=== PATIENT | male | born 1960 | race Hispanic/Latino ===

== ENCOUNTER 2017-10-18 06:45 | Day surgery (SDC) | payer MEDICAID ==
[2017-10-14 10:07] VITALS: BP 144/80
[2017-10-14 10:32] LABS: BASOPHILS % (AUTO) 1.2 % (0.0-5.0); EOSINOPHILS % (AUTO) 1.4 % (0.0-8.0); HEMATOCRIT 41.1 % (42-54); LYMPHOCYTES % (AUTO) 35.9 % (21.0-51.0); MEAN CORPUSCULAR HEMOGLOBIN 29.8 pg (27.0-33.0); MEAN CORPUSCULAR HGB CONC 34.5 g/dL (32.0-36.0); MEAN CORPUSCULAR VOLUME 86.3 fL (79-99); MONOCYTES % (AUTO) 7.1 % (3.0-13.0); NEUTROPHILS % (AUTO) 54.4 % (40.0-77.0); NUCLEATED RED BLOOD CELLS 0.1 % (0.0-0.19); PLATELET COUNT (AUTO) 239 K/uL (130-400); RED BLOOD CELL COUNT(AUTO) 4.77 MIL/uL (4.50-6.20); RED CELL DISTRIBUTION WIDTH 13.6 % (11.0-15.5); WHITE BLOOD COUNT (AUTO) 5.9 K/uL (4.8-10.8)
[2017-10-14 10:36] LABS: APPEARANCE,URINE Clear (CLEAR); BILIRUBIN,URINE Negative (NEGATIVE); COLOR,URINE Yellow (YELLOW); GLUCOSE, URINE (UA) >=1000 mg/dL (NEGATIVE); KETONES,URINE Trace mg/dL (NEGATIVE); LEUKOCYTE ESTERASE ,URINE Negative (NEGATIVE); NITRATE,URINE Negative (NEGATIVE); OCCULT BLOOD,URINE Negative (NEGATIVE); PH,URINE 6.5 (5.0-8.0); PROTEIN,URINE Negative (NEGATIVE)
[2017-10-14 10:47] LABS: CREATININE 0.9 mg/dL (0.5-1.5); POTASSIUM 4.3 mmol/L (3.5-5.1)
[2017-10-14 11:23] LABS: BACTERIA,URINE Rare /HPF (None Seen); RBC,URINE 0-1 /HPF (0-1); SQUAMOUS EPITHELIAL CELL,UR Rare /HPF (0-2); WBC,URINE 0-1 /HPF (0-1)
[~2017-10-18] VITALS: Ht 162.6 cm; Wt 87.3 kg
[2017-10-18] VITALS (14 sets, daily range): BP systolic 114–153; BP diastolic 62–84
[~2017-10-18 06:45] MED LIST: ATOR40TA71 PO; CARV3.12 PO; DIVA-78 PO; GLYB-226 PO; HYDR100C2 PO; INSU100I21 SQ; LINA5TAB PO; QUETIAPINE PO
[2017-10-18] MEDS ORDERED: SODIUM CHLORIDE 0.9% 1000ML 1,000 ML IV ONE (07:51)
[2017-10-18] MEDS ORDERED: INSULIN HUMULIN R 100 UNIT/ML 3ML ONE (08:39)
[2017-10-18] MEDS ORDERED: INSULIN HUMULIN R 100 UNIT/ML 3ML IV ONE (09:00)
[2017-10-18] MEDS ORDERED: FENTANYL CITRATE PF 50 MCG/1 ML 2ML VIAL ONE ×2 (09:13→09:23)
[2017-10-18] MEDS ORDERED: PROPOFOL 10 MG/ML 20ML VIAL IV ONE (09:13)
[2017-10-18] MEDS ORDERED: MIDAZOLAM HCL 1 MG/ML 2ML VIAL ONE (09:13)
[2017-10-18] MEDS ORDERED: BUPIVACAINE/PF 0.25% 30ML VIAL IJ ONE (09:16)
[2017-10-18] MEDS ORDERED: EPHEDRINE SULFATE 50 MG/ML AMPULE ONE (09:28)
[2017-10-18] MEDS ORDERED: NEOSTIGMINE 5MG/5ML SYR IV ONE (09:54)
== END 2017-10-18 12:10 | disposition home or self-care (01) ==
LOC: DAH 06:45
PROVIDERS: ATTEND Surgery
DX: K42.9 Umbilical hernia without obstruction or gangrene (principal); I10 Essential (primary) hypertension; E11.9 Type 2 diabetes mellitus without complications; Z88.8 Allergy status to other drugs, medicaments and biological substances; Z68.30 Body mass index [BMI] 30.0-30.9, adult
CPT/HCPCS: 36415; 49585; 80048; 81001; 82948 ×4; 85025; A4450; A4606; C1781; J1815; J2250; J2704; J2710; J3010 ×2; J3490 ×2; J7030

== ENCOUNTER 2022-02-07 22:00 | Inpatient (IN) | payer MEDICAID ==
[~2022-02-07] VITALS: Ht 157.5 cm; Wt 75.3 kg
[~2022-02-07 22:00] MED LIST changes: +EPINEPHRINE 1MG/10ML(1:10,000) 0.1 MG/ML SYG IVP ONE; +ETOMIDATE 20MG VIAL IVP ONE; +GLYB-171 PO; -GLYB-226 PO; +SUCCINYLCHOLINE CHLORIDE 20 MG/ML 10 ML VIAL IVP ONE
[2022-02-07 22:19] LABS: BASOPHILS % (AUTO) 0.2 % (0.0-5.0); HEMATOCRIT 36.6 % (42-54); LYMPHOCYTES % (AUTO) 11.8 % (21.0-51.0); MEAN CORPUSCULAR HEMOGLOBIN 29.5 pg (27.0-33.0); MEAN CORPUSCULAR HGB CONC 35.5 g/dL (32.0-36.0); MEAN CORPUSCULAR VOLUME 83.2 fL (79-99); MONOCYTES % (AUTO) 8.1 % (3.0-13.0); NEUTROPHILS % (AUTO) 78.2 % (40.0-77.0); PLATELET COUNT (AUTO) 263 K/uL (130-400); RED CELL DISTRIBUTION WIDTH 12.8 % (11.0-15.5); WHITE BLOOD COUNT (AUTO) 11.7 K/uL (4.8-10.8)
[2022-02-07 22:30] LABS: CARBON DIOXIDE 21 mmol/L (21-32); CHLORIDE 92 mmol/L (101-111); CREATININE 1.8 mg/dL (0.5-1.5); GLOMERULAR FILTR. RATE CALC 41 mL/min (>60); GLUCOSE,RANDOM 309 mg/dL (70-105); INR 0.93 (0.85-1.15); POTASSIUM 4.4 mmol/L (3.5-5.1); PROTHROMBIN TIME 10.2 SEC (9.6-11.6); SODIUM SERUM 123 mmol/L (136-145); UREA NITROGEN, BLOOD 21 mg/dL (7-18)
[2022-02-07] MEDS ORDERED: ASPIRIN 81MG CHEW TAB PO ONE ×2 (22:30)
[2022-02-07] MEDS ORDERED: CLOPIDOGREL 300MG TAB PO ONE ×2 (22:30)
[2022-02-07] MEDS ORDERED: PHARMACY COMMUNICATION MISC SCH ×2 (22:30)
[2022-02-07 22:31] LABS: PARTIAL THROMBOPLASTIN TIME 29.3 SEC (26.3-35.5)
[2022-02-07 22:35] LABS: ALANINE AMINOTRANSFERASE 51 U/L (12-78); ALBUMIN 3.8 g/dL (3.5-5.0); ALCOHOL, BLOOD < 3 mg/dL (0-10); AMMONIA 20 umol/L (11-32); ASPARTATE AMINOTRANSFERASE 55 U/L (10-37); TOTAL PROTEIN, SERUM 7.4 g/dL (6.0-8.3)
[2022-02-07] MEDS ORDERED: HEPARIN 25,000 UNITS/250ML D5W 250 ML IV STA (22:39)
[2022-02-07 22:45] LABS: B-TYPE NATRIURETIC PEPTIDE 290 pg/mL (0-100)
[2022-02-07] MEDS ORDERED: HEPARIN 5,000 UNIT VIAL ONE (22:46)
[2022-02-07] MEDS ORDERED: CLOPIDOGREL 75MG TAB PO ONE (23:00)
[2022-02-07] MEDS ORDERED: HEPARIN 5,000 UNIT VIAL IV ONE (23:00)
[2022-02-07] MEDS: HEPARIN 25,000 UNITS/250ML D5W 250 ML IV SCH (23:02)
[2022-02-08] VITALS (35 sets, daily range): BP systolic 81–195; BP diastolic 45–112
[2022-02-08] MEDS ORDERED: LACTULOSE 20 GM/30 ML UDCUP PO PRN
[2022-02-08] MEDS ORDERED: ONDANSETRON 4MG INJ IV PRN
[2022-02-08] MEDS ORDERED: AZITHROMYCIN 500MG+NS 250ML 250 ML IV SCH
[2022-02-08] MEDS ORDERED: 0.9%NACL 1000ML 1,000 ML IV SCH
[2022-02-08] MEDS ORDERED: CLOPIDOGREL 300MG TAB PO ONE (00:30)
[2022-02-08 00:32] LABS: CHOLESTEROL 157 mg/dL (<200); CREATINE KINASE, TOTAL 359 U/L (21-232); HDL CHOLESTEROL 37 mg/dL (29-71); LDL DIRECT 61 mg/dL (0-99); TRIGLYCERIDES 343 mg/dL (30-200)
[2022-02-08 00:33] LABS: HEMOGLOBIN A1C 8.8 % (4.0-6.0)
[2022-02-08] MEDS: CEFTRIAXONE 1G VIAL IV SCH ×2 (00:45→23:57)
[2022-02-08] MEDS: INSULIN HUMULIN R 100 UNIT/ML 3ML SQ SCH ×4 (00:46→18:00)
[2022-02-08] MEDS ORDERED: FUROSEMIDE 100MG VIAL IVP ONE (01:00)
[2022-02-08 01:15] LABS: ABG BASE EXCESS -7.9 mmol/L (-2.0-3.0); ABG HCO3 17.2 mmol/L (21.0-28.0); ABG OXYGEN SATURATION 94.1 % (95.0-99.0); ABG PCO2 34 mmHg (35-48)
[2022-02-08] MEDS ORDERED: FUROSEMIDE 40MG VIAL ONE ×2 (02:09→08:42)
[2022-02-08] MEDS ORDERED: OMEP40CA21 PO (02:22)
[2022-02-08] MEDS ORDERED: ATOR20TA65 PO (02:23)
[2022-02-08] MEDS ORDERED: QUET100T34 PO (02:24)
[2022-02-08] MEDS ORDERED: AMLO-257 PO (02:26)
[2022-02-08] MEDS ORDERED: LISI40TA9 PO (02:27)
[2022-02-08] MEDS ORDERED: GLYB-171 PO (02:28)
[2022-02-08] MEDS ORDERED: GABA-529 PO (02:29)
[2022-02-08] MEDS ORDERED: FAMO40TA7 PO (02:30)
[2022-02-08] MEDS ORDERED: LORAZEPAM 0.5 MG TABLET PO ONE (02:30)
[2022-02-08] MEDS ORDERED: INSU100V12 SQ (02:33)
[2022-02-08] MEDS ORDERED: DEXMEDETOMIDINE 400MCG/NS100ML IV ONE (05:22)
[2022-02-08 06:15] LABS: ABG BASE EXCESS -11.8 mmol/L (-2.0-3.0); ABG HCO3 18.3 mmol/L (21.0-28.0); ABG OXYGEN SATURATION 92.8 % (95.0-99.0); ABG PCO2 61 mmHg (35-48)
[2022-02-08 07:08] LABS: INR 0.95 (0.85-1.15); PROTHROMBIN TIME 10.4 SEC (9.6-11.6)
[2022-02-08 07:09] LABS: PARTIAL THROMBOPLASTIN TIME 33.1 SEC (26.3-35.5)
[2022-02-08] MEDS ORDERED: HEPARIN 5,000 UNIT VIAL IV SCH (08:00)
[2022-02-08] MEDS ORDERED: FUROSEMIDE 40MG VIAL IV SCH ×2 (08:30→08:43)
[2022-02-08] MEDS ORDERED: SODIUM BICARB 50MEQ 50ML VIAL 50 ML ONE ×2 (08:41→17:23)
[2022-02-08] MEDS ORDERED: NITROGLYCERIN 50MG/D5W 250ML 1 BOT ONE (08:42)
[2022-02-08] MEDS ORDERED: MORPHINE 2 MG SYG ONE (08:50)
[2022-02-08] MEDS ORDERED: MORPHINE 2 MG SYG IM SCH (08:54)
[2022-02-08] MEDS ORDERED: INSULIN HUMULIN R 100 UNIT/ML 3ML IV SCH (09:00)
[2022-02-08] MEDS ORDERED: METOPROLOL TARTRATE 25 MG TAB PO SCH (09:00)
[2022-02-08] MEDS ORDERED: NITROGLYCERIN 50MG/D5W 250ML 250 BOT IV SCH (09:00)
[2022-02-08] MEDS: CILOSTAZOL 100 MG TAB PO SCH ×2 (09:00→21:11)
[2022-02-08] MEDS ORDERED: FENTANYL 2500MCG+NS 250ML 250 ML IV ONE (09:23)
[2022-02-08] MEDS ORDERED: SODIUM BICARB 50MEQ 50ML VIAL 200 ML ONE (09:29)
[2022-02-08] MEDS ORDERED: INSULIN REGULAR, HUMAN 3ML 100 UNIT in 0.9%NACL 100ML 99 ML IV PRN ×2 (09:30)
[2022-02-08] MEDS ORDERED: MIDAZOLAM 100MG-0.9% NS 100ML 100ML BAG IV ONE (09:30)
[2022-02-08] MEDS ORDERED: NOREPINEPHRIN 4MG/NS 250ML 250 ML IV ONE (09:30)
[2022-02-08] MEDS ORDERED: FENTANYL 2500MCG+NS 250ML IV.SOLN IV SCH (09:30)
[2022-02-08] MEDS ORDERED: EPINEPHRINE PF 1MG (1:1,000) 1 MG/ML AMP ONE (09:40)
[2022-02-08] MEDS ORDERED: MIDAZOLAM 100MG-0.9% NS 100ML 100 ML IV SCH (10:00)
[2022-02-08 10:02] LABS: ABG BASE EXCESS -8.3 mmol/L (-2.0-3.0); ABG HCO3 17.5 mmol/L (21.0-28.0); ABG OXYGEN SATURATION 99.3 % (95.0-99.0); ABG PCO2 37 mmHg (35-48)
[2022-02-08] MEDS: HEPARIN 25,000 UNITS/250ML D5W 250 ML IV SCH (10:10)
[2022-02-08] MEDS ORDERED: NOREPINEPHRINE BITARTRATE 32 MG in 0.9% NACL 250ML 250 ML IV PRN (10:30)
[2022-02-08] MEDS ORDERED: ASPIRIN 300 MG SUPPOSITORY PR SCH (10:30)
[2022-02-08] MEDS ORDERED: PHARMACY COMMUNICATION MISC SCH ×2 (11:00→18:00)
[2022-02-08] MEDS: ATORVASTATIN 40 MG TABLET PO SCH ×2 (11:00→21:11)
[2022-02-08 11:12] LABS: HEMATOCRIT 33.4 % (42-54); MEAN CORPUSCULAR HEMOGLOBIN 29.2 pg (27.0-33.0); MEAN CORPUSCULAR HGB CONC 33.5 g/dL (32.0-36.0); MEAN CORPUSCULAR VOLUME 87.2 fL (79-99); PLATELET COUNT (AUTO) 284 K/uL (130-400); RED BLOOD CELL COUNT(AUTO) 3.83 MIL/uL (4.50-6.20); RED CELL DISTRIBUTION WIDTH 12.9 % (11.0-15.5)
[2022-02-08] MEDS: CHLORHEXIDINE GLUCONATE 473 ML MOUTHWASH MM SCH ×2 (11:15→21:00)
[2022-02-08 11:23] LABS: APPEARANCE,URINE CLEAR (CLEAR); BILIRUBIN,URINE NEGATIVE (NEGATIVE); COLOR,URINE LIGHT-YELLOW (YELLOW); GLUCOSE, URINE (UA) >=1000 mg/dL (NEGATIVE); KETONES,URINE 5 mg/dL (NEGATIVE); LEUKOCYTE ESTERASE ,URINE NEGATIVE Leu/uL (NEGATIVE); NITRATE,URINE NEGATIVE (NEGATIVE); OCCULT BLOOD,URINE NEGATIVE (NEGATIVE); PROTEIN,URINE NEGATIVE (NEGATIVE); UROBILINOGEN,URINE 0.2 mg/dL (0.2-1.0)
[2022-02-08 11:29] LABS: MUCUS,URINE RARE LPF (None Seen); OTHER CASTS, URINE 1 /LPF (None Seen); SQUAMOUS EPITHELIAL CELL,UR RARE /HPF (0-2); WBC,URINE 0-1 /HPF (0-1)
[2022-02-08 11:31] LABS: AMPHET/METH SCREEN,URINE NEGATIVE (NEGATIVE); BARBITURATE SCREEN, URINE NEGATIVE (NEGATIVE); BENZODIAZEPINES SCREEN,URINE NEGATIVE (NEGATIVE); CANNABINOID SCREEN,URINE NEGATIVE (NEGATIVE); COCAINE SCREEN,URINE NEGATIVE (NEGATIVE); PHENCYCLIDINE SCREEN,URINE NEGATIVE (NEGATIVE)
[2022-02-08 11:54] LABS: ALBUMIN 3.1 g/dL (3.5-5.0); CREATININE 2.6 mg/dL (0.5-1.5); MAGNESIUM 1.7 mg/dL (1.80-2.40); PHOSPHORUS 5.7 mg/dL (2.5-4.9); POTASSIUM 4.2 mmol/L (3.5-5.1); TOTAL PROTEIN, SERUM 6.7 g/dL (6.0-8.3)
[2022-02-08] MEDS: FUROSEMIDE 100MG VIAL 100 MG in 0.9%NACL 100ML 100 ML IV SCH (12:09)
[2022-02-08 12:18] LABS: BAND NEUTROPHILS % (MANUAL) 4 % (0-2); LYMPHOCYTES % (MANUAL) 11 % (22-44); SEGMENTED NEUTROPHILS % 85 % (40-70)
[2022-02-08 12:19] LABS: MAN.DIFF COMMENT-IMPRESSION MANUAL DIFFERENTIAL; PLATELET MORPHOLOGY COMMENT ADEQUATE
[2022-02-08] MEDS ORDERED: DEXTROSE 50%-WATER 50 ML DISP.SYRIN IV PRN ×2 (12:30→17:30)
[2022-02-08] MEDS ORDERED: INSULIN IV SS1 IV PRN ×2 (12:30)
[2022-02-08 12:32] LABS: INR 0.97 (0.85-1.15); PROTHROMBIN TIME 10.6 SEC (9.6-11.6)
[2022-02-08 12:33] LABS: PARTIAL THROMBOPLASTIN TIME 36.7 SEC (26.3-35.5)
[2022-02-08] MEDS: PANTOPRAZOLE 40 MG/VIAL IVP SCH ×2 (13:34→21:11)
[2022-02-08] MEDS: ARTIFICAL TEARS SOL 15 ML OU SCH ×3 (13:35→23:58)
[2022-02-08] MEDS: DOXYCYCLINE 100MG+NS 250ML IV SCH ×2 (13:35→23:57)
[2022-02-08] MEDS ORDERED: IOHEXOL 350 MG/ML 100ML INFUS..BTL IV ONE (16:00)
[2022-02-08] MEDS ORDERED: LIDOCAINE HCL-MPF 2% 10ML AMP IJ ONE (16:00)
[2022-02-08] MEDS ORDERED: VERAPAMIL HCL 2.5 MG/ML VIAL ONE (16:01)
[2022-02-08] MEDS ORDERED: HEPARIN 10,000 UNIT/10ML (1,000 UNIT/ML) VIAL ONE (16:01)
[2022-02-08] MEDS ORDERED: GLUCAGON 1MG KIT 1 MG ML IM PRN (17:30)
[2022-02-08] MEDS ORDERED: IOHEXOL-350 50ML VIAL IV ONE (17:31)
[2022-02-08] MEDS: EPINEPHRINE PF 1MG (1:1,000) 10 MG in 0.9% NACL 250ML 240 ML IV PRN (18:31)
[2022-02-08 18:48] LABS: HEMATOCRIT 33.4 % (42-54); MEAN CORPUSCULAR HEMOGLOBIN 29.2 pg (27.0-33.0); MEAN CORPUSCULAR HGB CONC 35.9 g/dL (32.0-36.0); MEAN CORPUSCULAR VOLUME 81.3 fL (79-99); PLATELET COUNT (AUTO) 338 K/uL (130-400); RED BLOOD CELL COUNT(AUTO) 4.11 MIL/uL (4.50-6.20); RED CELL DISTRIBUTION WIDTH 12.6 % (11.0-15.5); WHITE BLOOD COUNT (AUTO) 17.7 K/uL (4.8-10.8)
[2022-02-08 18:56] LABS: CREATININE 1.6 mg/dL (0.5-1.5); POTASSIUM 3.3 mmol/L (3.5-5.1)
[2022-02-08 18:58] LABS: INR 1.03 (0.85-1.15); PROTHROMBIN TIME 11.2 SEC (9.6-11.6)
[2022-02-08 19:01] LABS: ALBUMIN 3.3 g/dL (3.5-5.0); MAGNESIUM 1.7 mg/dL (1.80-2.40); TOTAL PROTEIN, SERUM 7.2 g/dL (6.0-8.3)
[2022-02-08] MEDS ORDERED: LIDOCAINE HCL-MPF 1% 2ML VIAL IV PRN ×2 (19:30)
[2022-02-08] MEDS ORDERED: POTASSIUM CHLORIDE 20MEQ/100ML 100 ML IV PRN (19:30)
[2022-02-08 19:37] LABS: PARTIAL THROMBOPLASTIN TIME > 139.0 SEC (26.3-35.5)
[2022-02-08 20:07] LABS: BAND NEUTROPHILS % (MANUAL) 6 % (0-2); LYMPHOCYTES % (MANUAL) 14 % (22-44); MAN.DIFF COMMENT-IMPRESSION MANUAL DIFFERENTIAL; MONOCYTES % (MANUAL) 12 % (2-9); REACTIVE LYMPHOCYTES 5 % (0-0); SEGMENTED NEUTROPHILS % 63 % (40-70)
[2022-02-08] MEDS ORDERED: 0.9%NACL 50ML IV SCH (20:30)
[2022-02-08] MEDS: INSULIN GLARGINE 100 UNITS/ML 10 ML VIAL SQ SCH (21:00)
[2022-02-08] MEDS: POTASSIUM CHLORIDE 20MEQ/100ML 100 ML IV PRN (22:30)
[2022-02-08] MEDS: INSULIN IV SS2 IV PRN ×2 (23:55)
[2022-02-09] VITALS (23 sets, daily range): BP systolic 92–163; BP diastolic 67–103
[2022-02-09 00:40] LABS: BASOPHILS % (AUTO) 0.2 % (0.0-5.0); EOSINOPHILS % (AUTO) 0.3 % (0.0-8.0); HEMATOCRIT 33.8 % (42-54); LYMPHOCYTES % (AUTO) 21.1 % (21.0-51.0); MEAN CORPUSCULAR HEMOGLOBIN 29.2 pg (27.0-33.0); MEAN CORPUSCULAR HGB CONC 35.8 g/dL (32.0-36.0); MEAN CORPUSCULAR VOLUME 81.6 fL (79-99); MONOCYTES % (AUTO) 12.7 % (3.0-13.0); PLATELET COUNT (AUTO) 357 K/uL (130-400); RED BLOOD CELL COUNT(AUTO) 4.14 MIL/uL (4.50-6.20); RED CELL DISTRIBUTION WIDTH 12.7 % (11.0-15.5); WHITE BLOOD COUNT (AUTO) 19.5 K/uL (4.8-10.8)
[2022-02-09 00:46] LABS: PROTHROMBIN TIME 10.9 SEC (9.6-11.6)
[2022-02-09 00:48] LABS: PARTIAL THROMBOPLASTIN TIME 54.1 SEC (26.3-35.5)
[2022-02-09 00:49] LABS: ALBUMIN 3.3 g/dL (3.5-5.0); CREATININE 1.3 mg/dL (0.5-1.5); MAGNESIUM 1.5 mg/dL (1.80-2.40); PHOSPHORUS 2.4 mg/dL (2.5-4.9); TOTAL PROTEIN, SERUM 7.3 g/dL (6.0-8.3)
[2022-02-09] MEDS: POTASSIUM CHLORIDE 20MEQ/100ML 100 ML IV PRN ×6 (00:59→18:25)
[2022-02-09] MEDS: FENTANYL 2500MCG+NS 250ML 250 ML IV SCH ×3 (01:40→23:37)
[2022-02-09] MEDS: MAGNESIUM 2GM PREMIX 50ML 50 ML IV PRN ×2 (03:02→18:20)
[2022-02-09 03:41] LABS: ABG BASE EXCESS 3.6 mmol/L (-2.0-3.0); ABG HCO3 26.1 mmol/L (21.0-28.0); ABG OXYGEN SATURATION 99.2 % (95.0-99.0); ABG PCO2 33 mmHg (35-48)
[2022-02-09] MEDS: ARTIFICAL TEARS SOL 15 ML OU SCH ×4 (05:23→23:03)
[2022-02-09] MEDS: INSULIN HUMULIN R 100 UNIT/ML 3ML SQ SCH ×5 (06:00→23:03)
[2022-02-09 06:03] LABS: BASOPHILS % (AUTO) 0.3 % (0.0-5.0); EOSINOPHILS % (AUTO) 0.1 % (0.0-8.0); HEMATOCRIT 33.8 % (42-54); LYMPHOCYTES % (AUTO) 20.7 % (21.0-51.0); MEAN CORPUSCULAR HEMOGLOBIN 29.3 pg (27.0-33.0); MEAN CORPUSCULAR HGB CONC 35.8 g/dL (32.0-36.0); MEAN CORPUSCULAR VOLUME 81.8 fL (79-99); MONOCYTES % (AUTO) 12.2 % (3.0-13.0); NEUTROPHILS % (AUTO) 66.1 % (40.0-77.0); NUCLEATED RED BLOOD CELLS 0.1 % (0.0-0.19); PLATELET COUNT (AUTO) 349 K/uL (130-400); RED BLOOD CELL COUNT(AUTO) 4.13 MIL/uL (4.50-6.20); RED CELL DISTRIBUTION WIDTH 12.7 % (11.0-15.5); WHITE BLOOD COUNT (AUTO) 18.6 K/uL (4.8-10.8)
[2022-02-09 06:19] LABS: POTASSIUM 3.1 mmol/L (3.5-5.1)
[2022-02-09 06:20] LABS: PROTHROMBIN TIME 10.9 SEC (9.6-11.6)
[2022-02-09 06:21] LABS: PARTIAL THROMBOPLASTIN TIME 53.5 SEC (26.3-35.5)
[2022-02-09] MEDS: FUROSEMIDE 100MG VIAL 100 MG in 0.9%NACL 100ML 100 ML IV SCH (06:30)
[2022-02-09 06:40] LABS: ALBUMIN 3.3 g/dL (3.5-5.0); MAGNESIUM 1.9 mg/dL (1.80-2.40); PHOSPHORUS 2.7 mg/dL (2.5-4.9); THYROID STIMULATING HORMONE 1.6 uIU/mL (0.36-3.74); TOTAL PROTEIN, SERUM 7.2 g/dL (6.0-8.3)
[2022-02-09] MEDS: MIDAZOLAM 100MG-0.9% NS 100ML 100ML BAG IV PRN ×2 (08:38→18:19)
[2022-02-09 09:48] LABS: BASOPHILS % (AUTO) 0.2 % (0.0-5.0); EOSINOPHILS % (AUTO) 0.1 % (0.0-8.0); HEMATOCRIT 34.3 % (42-54); MEAN CORPUSCULAR HEMOGLOBIN 29.4 pg (27.0-33.0); MEAN CORPUSCULAR HGB CONC 35.3 g/dL (32.0-36.0); MEAN CORPUSCULAR VOLUME 83.3 fL (79-99); NEUTROPHILS % (AUTO) 66.2 % (40.0-77.0); PLATELET COUNT (AUTO) 336 K/uL (130-400); RED BLOOD CELL COUNT(AUTO) 4.12 MIL/uL (4.50-6.20); WHITE BLOOD COUNT (AUTO) 18.5 K/uL (4.8-10.8)
[2022-02-09 09:58] LABS: INR 1.01 (0.85-1.15)
[2022-02-09 09:59] LABS: PARTIAL THROMBOPLASTIN TIME 54.6 SEC (26.3-35.5)
[2022-02-09 10:05] LABS: POTASSIUM 3.7 mmol/L (3.5-5.1)
[2022-02-09 10:10] LABS: ALBUMIN 3.3 g/dL (3.5-5.0); TOTAL PROTEIN, SERUM 7.4 g/dL (6.0-8.3)
[2022-02-09] MEDS: CHLORHEXIDINE GLUCONATE 473 ML MOUTHWASH MM SCH ×2 (10:29→20:59)
[2022-02-09] MEDS: PANTOPRAZOLE 40 MG/VIAL IVP SCH ×2 (10:29→20:58)
[2022-02-09] MEDS: DOXYCYCLINE 100MG+NS 250ML IV SCH ×2 (10:29→23:03)
[2022-02-09] MEDS: INSULIN GLARGINE 100 UNITS/ML 10 ML VIAL SQ SCH ×2 (10:30→21:12)
[2022-02-09] MEDS: CILOSTAZOL 100 MG TAB PO SCH ×2 (10:35→20:58)
[2022-02-09] MEDS: HEPARIN 25,000 UNITS/250ML D5W 250 ML IV SCH (11:26)
[2022-02-09] MEDS: DEXMEDETOMIDINE 400MCG/NS100ML IV SCH (11:50)
[2022-02-09 13:18] LABS: ABG BASE EXCESS 3.9 mmol/L (-2.0-3.0); ABG HCO3 27.4 mmol/L (21.0-28.0); ABG OXYGEN SATURATION 95.8 % (95.0-99.0); ABG PCO2 38 mmHg (35-48)
[2022-02-09] MEDS: CALCIUM GLUC 1GM/10ML VIAL IVPB SCH (13:44)
[2022-02-09] MEDS: EPINEPHRINE PF 1MG (1:1,000) 10 MG in 0.9% NACL 250ML 240 ML IV PRN (14:46)
[2022-02-09 17:01] LABS: CREATININE 0.9 mg/dL (0.5-1.5); POTASSIUM 3.3 mmol/L (3.5-5.1)
[2022-02-09 17:05] LABS: ALBUMIN 3.1 g/dL (3.5-5.0); BASOPHILS % (AUTO) 0.3 % (0.0-5.0); EOSINOPHILS % (AUTO) 0.2 % (0.0-8.0); HEMATOCRIT 33.4 % (42-54); LYMPHOCYTES % (AUTO) 27.4 % (21.0-51.0); MAGNESIUM 1.5 mg/dL (1.80-2.40); MEAN CORPUSCULAR HEMOGLOBIN 28.9 pg (27.0-33.0); MEAN CORPUSCULAR HGB CONC 34.1 g/dL (32.0-36.0); MEAN CORPUSCULAR VOLUME 84.6 fL (79-99); NEUTROPHILS % (AUTO) 59.6 % (40.0-77.0); PLATELET COUNT (AUTO) 295 K/uL (130-400); RED BLOOD CELL COUNT(AUTO) 3.95 MIL/uL (4.50-6.20); RED CELL DISTRIBUTION WIDTH 13.2 % (11.0-15.5); TOTAL PROTEIN, SERUM 7.1 g/dL (6.0-8.3); WHITE BLOOD COUNT (AUTO) 16.4 K/uL (4.8-10.8)
[2022-02-09 17:17] LABS: INR 1.05 (0.85-1.15); PROTHROMBIN TIME 11.4 SEC (9.6-11.6)
[2022-02-09 17:18] LABS: PARTIAL THROMBOPLASTIN TIME 58.5 SEC (26.3-35.5)
[2022-02-09] MEDS ORDERED: NACL IV ONE (17:30)
[2022-02-09 22:53] LABS: BASOPHILS % (AUTO) 0.2 % (0.0-5.0); EOSINOPHILS % (AUTO) 0.4 % (0.0-8.0); HEMATOCRIT 32.9 % (42-54); LYMPHOCYTES % (AUTO) 28.7 % (21.0-51.0); MEAN CORPUSCULAR HEMOGLOBIN 28.8 pg (27.0-33.0); MEAN CORPUSCULAR HGB CONC 33.7 g/dL (32.0-36.0); MEAN CORPUSCULAR VOLUME 85.2 fL (79-99); MONOCYTES % (AUTO) 11.6 % (3.0-13.0); NEUTROPHILS % (AUTO) 58.7 % (40.0-77.0); PLATELET COUNT (AUTO) 255 K/uL (130-400); RED BLOOD CELL COUNT(AUTO) 3.86 MIL/uL (4.50-6.20); RED CELL DISTRIBUTION WIDTH 13.2 % (11.0-15.5); WHITE BLOOD COUNT (AUTO) 16.8 K/uL (4.8-10.8)
[2022-02-09] MEDS: CEFTRIAXONE 1G VIAL IV SCH (23:03)
[2022-02-09 23:07] LABS: INR 1.05 (0.85-1.15); PROTHROMBIN TIME 11.4 SEC (9.6-11.6)
[2022-02-09 23:08] LABS: PARTIAL THROMBOPLASTIN TIME 63.2 SEC (26.3-35.5)
[2022-02-09 23:11] LABS: POTASSIUM 3.3 mmol/L (3.5-5.1)
[2022-02-09 23:15] LABS: MAGNESIUM 1.6 mg/dL (1.80-2.40); PHOSPHORUS 3.4 mg/dL (2.5-4.9); TOTAL PROTEIN, SERUM 6.9 g/dL (6.0-8.3)
[2022-02-10] VITALS (38 sets, daily range): BP systolic 81–175; BP diastolic 52–84
[2022-02-10] MEDS: MAGNESIUM 2GM PREMIX 50ML 50 ML IV PRN ×2 (00:31→04:55)
[2022-02-10] MEDS: HEPARIN 25,000 UNITS/250ML D5W 250 ML IV SCH ×2 (00:57→16:09)
[2022-02-10] MEDS: INSULIN IV SS2 IV PRN ×2 (00:59)
[2022-02-10] MEDS: POTASSIUM CHLORIDE 20MEQ/100ML 100 ML IV PRN ×2 (01:53→04:28)
[2022-02-10] MEDS ORDERED: 0.9% NACL 500ML IV.SOLN 500 ML IV ONE (02:50)
[2022-02-10 04:12] LABS: BASOPHILS % (AUTO) 0.4 % (0.0-5.0); EOSINOPHILS % (AUTO) 0.5 % (0.0-8.0); HEMATOCRIT 31.6 % (42-54); LYMPHOCYTES % (AUTO) 26.9 % (21.0-51.0); MEAN CORPUSCULAR HEMOGLOBIN 29.4 pg (27.0-33.0); MEAN CORPUSCULAR HGB CONC 34.5 g/dL (32.0-36.0); MEAN CORPUSCULAR VOLUME 85.2 fL (79-99); MONOCYTES % (AUTO) 11.6 % (3.0-13.0); NEUTROPHILS % (AUTO) 60.2 % (40.0-77.0); PLATELET COUNT (AUTO) 273 K/uL (130-400); RED BLOOD CELL COUNT(AUTO) 3.71 MIL/uL (4.50-6.20); WHITE BLOOD COUNT (AUTO) 16.8 K/uL (4.8-10.8)
[2022-02-10 04:22] LABS: CREATININE 0.9 mg/dL (0.5-1.5); POTASSIUM 3.8 mmol/L (3.5-5.1)
[2022-02-10 04:36] LABS: ALBUMIN 2.9 g/dL (3.5-5.0); INR 1.02 (0.85-1.15); MAGNESIUM 1.9 mg/dL (1.80-2.40); PHOSPHORUS 3.1 mg/dL (2.5-4.9); PROTHROMBIN TIME 11.1 SEC (9.6-11.6); TOTAL PROTEIN, SERUM 6.8 g/dL (6.0-8.3)
[2022-02-10 04:38] LABS: PARTIAL THROMBOPLASTIN TIME 62.5 SEC (26.3-35.5)
[2022-02-10] MEDS: INSULIN HUMULIN R 100 UNIT/ML 3ML SQ SCH ×4 (04:40→23:54)
[2022-02-10] MEDS: ARTIFICAL TEARS SOL 15 ML OU SCH ×4 (04:55→23:53)
[2022-02-10] MEDS: MIDAZOLAM 100MG-0.9% NS 100ML 100ML BAG IV PRN (05:56)
[2022-02-10] MEDS: INSULIN GLARGINE 100 UNITS/ML 10 ML VIAL SQ SCH ×2 (05:57→21:43)
[2022-02-10] MEDS: CHLORHEXIDINE GLUCONATE 473 ML MOUTHWASH MM SCH ×2 (09:00→21:41)
[2022-02-10] MEDS: CILOSTAZOL 100 MG TAB PO SCH ×2 (09:52→21:41)
[2022-02-10] MEDS: PANTOPRAZOLE 40 MG/VIAL IVP SCH ×2 (09:52→21:41)
[2022-02-10 10:14] LABS: ABG BASE EXCESS 3.4 mmol/L (-2.0-3.0); ABG HCO3 26.9 mmol/L (21.0-28.0); ABG OXYGEN SATURATION 95.7 % (95.0-99.0); ABG PCO2 37 mmHg (35-48)
[2022-02-10 10:53] LABS: HEMATOCRIT 30.6 % (42-54); MEAN CORPUSCULAR HEMOGLOBIN 28.9 pg (27.0-33.0); MEAN CORPUSCULAR HGB CONC 33.7 g/dL (32.0-36.0); PLATELET COUNT (AUTO) 190 K/uL (130-400); RED BLOOD CELL COUNT(AUTO) 3.56 MIL/uL (4.50-6.20); RED CELL DISTRIBUTION WIDTH 13.1 % (11.0-15.5); WHITE BLOOD COUNT (AUTO) 10.4 K/uL (4.8-10.8)
[2022-02-10] MEDS: DOXYCYCLINE 100MG+NS 250ML IV SCH ×2 (11:00→23:53)
[2022-02-10 11:03] LABS: INR 1.01 (0.85-1.15)
[2022-02-10 11:04] LABS: CREATININE 0.9 mg/dL (0.5-1.5); PARTIAL THROMBOPLASTIN TIME 62.6 SEC (26.3-35.5); POTASSIUM 4.3 mmol/L (3.5-5.1)
[2022-02-10 11:08] LABS: ALBUMIN 2.8 g/dL (3.5-5.0); MAGNESIUM 2.5 mg/dL (1.80-2.40); PHOSPHORUS 4.2 mg/dL (2.5-4.9); TOTAL PROTEIN, SERUM 6.8 g/dL (6.0-8.3)
[2022-02-10 12:10] LABS: BAND NEUTROPHILS % (MANUAL) 1 % (0-2); EOSINOPHILS % (MANUAL) 2 % (1-6); LYMPHOCYTES % (MANUAL) 20 % (22-44); MAN.DIFF COMMENT-IMPRESSION MANUAL DIFFERENTIAL; MONOCYTES % (MANUAL) 4 % (2-9); PLATELET MORPHOLOGY COMMENT ADEQUATE; SEGMENTED NEUTROPHILS % 73 % (40-70)
[2022-02-10] MEDS: FENTANYL 2500MCG+NS 250ML 250 ML IV SCH (13:42)
[2022-02-10] MEDS: DEXMEDETOMIDINE 400MCG/NS100ML IV SCH (13:51)
[2022-02-10] MEDS: FUROSEMIDE 100MG VIAL 100 MG in 0.9%NACL 100ML 100 ML IV SCH (14:24)
[2022-02-10] MEDS ORDERED: ASPIRIN 81 MG EC TAB PO ONE (14:30)
[2022-02-10] MEDS: PROPOFOL 1000 MG/100 ML IV PRN (15:13)
[2022-02-10 16:56] LABS: HEMATOCRIT 28.7 % (42-54); MEAN CORPUSCULAR HEMOGLOBIN 29.3 pg (27.0-33.0); MEAN CORPUSCULAR HGB CONC 33.8 g/dL (32.0-36.0); MEAN CORPUSCULAR VOLUME 86.7 fL (79-99); PLATELET COUNT (AUTO) 186 K/uL (130-400); RED BLOOD CELL COUNT(AUTO) 3.31 MIL/uL (4.50-6.20); WHITE BLOOD COUNT (AUTO) 9.3 K/uL (4.8-10.8)
[2022-02-10 16:59] LABS: BASOPHILS % (AUTO) 0.2 % (0.0-5.0); EOSINOPHILS % (AUTO) 0.9 % (0.0-8.0); LYMPHOCYTES % (AUTO) 15.7 % (21.0-51.0); MONOCYTES % (AUTO) 8.5 % (3.0-13.0); NEUTROPHILS % (AUTO) 74.2 % (40.0-77.0)
[2022-02-10 17:04] LABS: CREATININE 0.9 mg/dL (0.5-1.5); POTASSIUM 4.5 mmol/L (3.5-5.1)
[2022-02-10 17:06] LABS: PROTHROMBIN TIME 10.9 SEC (9.6-11.6)
[2022-02-10 17:07] LABS: PARTIAL THROMBOPLASTIN TIME 59.2 SEC (26.3-35.5)
[2022-02-10 17:09] LABS: ALBUMIN 2.6 g/dL (3.5-5.0); MAGNESIUM 2.1 mg/dL (1.80-2.40); PHOSPHORUS 4.1 mg/dL (2.5-4.9); TOTAL PROTEIN, SERUM 6.5 g/dL (6.0-8.3)
[2022-02-10] MEDS: CALCIUM GLUC 1GM/10ML VIAL IVPB SCH ×3 (17:39→21:34)
[2022-02-10] MEDS ORDERED: DOBUTAMINE 250MG/D5 250ML 250 ML IV ONE (20:50)
[2022-02-10] MEDS ORDERED: DOBUTAMINE 250MG/D5 250ML 250 ML IV SCH (21:00)
[2022-02-10 21:09] LABS: ABG BASE EXCESS -1.3 mmol/L (-2.0-3.0); ABG HCO3 21.5 mmol/L (21.0-28.0); ABG OXYGEN SATURATION 96.5 % (95.0-99.0); ABG PCO2 29 mmHg (35-48)
[2022-02-10 21:10] LABS: MEAN CORPUSCULAR HEMOGLOBIN 29.6 pg (27.0-33.0); MEAN CORPUSCULAR HGB CONC 34.4 g/dL (32.0-36.0); PLATELET COUNT (AUTO) 168 K/uL (130-400); RED BLOOD CELL COUNT(AUTO) 3.14 MIL/uL (4.50-6.20); RED CELL DISTRIBUTION WIDTH 13.1 % (11.0-15.5); WHITE BLOOD COUNT (AUTO) 8.7 K/uL (4.8-10.8)
[2022-02-10 21:17] LABS: BASOPHILS % (AUTO) 0.1 % (0.0-5.0); EOSINOPHILS % (AUTO) 0.5 % (0.0-8.0); LYMPHOCYTES % (AUTO) 17.1 % (21.0-51.0); MONOCYTES % (AUTO) 6.7 % (3.0-13.0); NEUTROPHILS % (AUTO) 75.2 % (40.0-77.0)
[2022-02-10 21:19] LABS: CREATININE 0.9 mg/dL (0.5-1.5); POTASSIUM 4.2 mmol/L (3.5-5.1)
[2022-02-10 21:20] LABS: PROTHROMBIN TIME 10.9 SEC (9.6-11.6)
[2022-02-10 21:22] LABS: PARTIAL THROMBOPLASTIN TIME 60.9 SEC (26.3-35.5)
[2022-02-10 21:23] LABS: ALBUMIN 2.5 g/dL (3.5-5.0); PHOSPHORUS 4.5 mg/dL (2.5-4.9); TOTAL PROTEIN, SERUM 6.3 g/dL (6.0-8.3)
[2022-02-10] MEDS ORDERED: 0.9% NACL 250ML 250 ML ONE (21:40)
[2022-02-10] MEDS: CEFTRIAXONE 1G VIAL IV SCH (23:54)
[2022-02-11] VITALS (48 sets, daily range): BP systolic 65–169; BP diastolic 45–108
[2022-02-11] MEDS: DEXMEDETOMIDINE 400MCG/NS100ML IV SCH ×2 (00:47→09:03)
[2022-02-11] MEDS ORDERED: DEXTROSE 5%-WATER 1,000 ML IV ONE (01:09)
[2022-02-11] MEDS ORDERED: SODIUM BICARB 50MEQ 50ML VIAL 50 ML ONE (01:25)
[2022-02-11 03:32] LABS: ABG BASE EXCESS 0.3 mmol/L (-2.0-3.0); ABG HCO3 23.1 mmol/L (21.0-28.0); ABG OXYGEN SATURATION 97.6 % (95.0-99.0); ABG PCO2 32 mmHg (35-48)
[2022-02-11 03:58] LABS: BASOPHILS % (AUTO) 0.2 % (0.0-5.0); EOSINOPHILS % (AUTO) 1.6 % (0.0-8.0); HEMATOCRIT 29.5 % (42-54); LYMPHOCYTES % (AUTO) 25.8 % (21.0-51.0); MEAN CORPUSCULAR HEMOGLOBIN 29.4 pg (27.0-33.0); MEAN CORPUSCULAR HGB CONC 34.2 g/dL (32.0-36.0); MONOCYTES % (AUTO) 8.2 % (3.0-13.0); NEUTROPHILS % (AUTO) 63.8 % (40.0-77.0); PLATELET COUNT (AUTO) 169 K/uL (130-400); RED BLOOD CELL COUNT(AUTO) 3.43 MIL/uL (4.50-6.20); RED CELL DISTRIBUTION WIDTH 12.7 % (11.0-15.5); WHITE BLOOD COUNT (AUTO) 8.6 K/uL (4.8-10.8)
[2022-02-11 04:07] LABS: INR 1.01 (0.85-1.15)
[2022-02-11 04:09] LABS: PARTIAL THROMBOPLASTIN TIME 64.6 SEC (26.3-35.5)
[2022-02-11 04:26] LABS: B-TYPE NATRIURETIC PEPTIDE 453 pg/mL (0-100)
[2022-02-11 04:30] LABS: HEMOGLOBIN A1C 9.9 % (4.0-6.0)
[2022-02-11] MEDS: PROPOFOL 1000 MG/100 ML IV PRN ×4 (04:32→17:53)
[2022-02-11 04:45] LABS: CREATININE 0.8 mg/dL (0.5-1.5); POTASSIUM 3.4 mmol/L (3.5-5.1)
[2022-02-11] MEDS: POTASSIUM CHLORIDE 20MEQ/100ML 100 ML IV PRN ×2 (04:53→07:05)
[2022-02-11 05:08] LABS: ALBUMIN 2.5 g/dL (3.5-5.0); TOTAL PROTEIN, SERUM 6.3 g/dL (6.0-8.3)
[2022-02-11] MEDS: INSULIN HUMULIN R 100 UNIT/ML 3ML SQ SCH (05:12)
[2022-02-11] MEDS: ARTIFICAL TEARS SOL 15 ML OU SCH ×4 (05:12→23:00)
[2022-02-11] MEDS: HEPARIN 25,000 UNITS/250ML D5W 250 ML IV SCH (07:03)
[2022-02-11] MEDS: MAGNESIUM 2GM PREMIX 50ML 50 ML IV PRN (07:04)
[2022-02-11] MEDS: INSULIN GLARGINE 100 UNITS/ML 10 ML VIAL SQ SCH (07:30)
[2022-02-11] MEDS ORDERED: EPINEPHRINE PF 1MG (1:1,000) 10 MG in 0.9% NACL 250ML 240 ML IV PRN ×2 (08:00→21:00)
[2022-02-11] MEDS ORDERED: AMINOCAPROIC ACID 5,000MG VIAL 15,000 MG in 0.9% NACL 500ML IV.SOLN 420 ML IV PRN (08:00)
[2022-02-11] MEDS ORDERED: NOREPINEPHRINE BITARTRATE 8 MG in DEXTROSE 5%-WATER 250 ML IV PRN (08:00)
[2022-02-11] MEDS: INSULIN IV SS2 IV PRN ×2 (08:59)
[2022-02-11] MEDS: ASPIRIN 81 MG EC TAB PO SCH (09:00)
[2022-02-11] MEDS: PANTOPRAZOLE 40 MG/VIAL IVP SCH ×2 (09:00→21:00)
[2022-02-11] MEDS: CILOSTAZOL 100 MG TAB PO SCH ×2 (09:00→21:00)
[2022-02-11] MEDS: CHLORHEXIDINE GLUCONATE 473 ML MOUTHWASH MM SCH ×2 (09:01→23:34)
[2022-02-11] MEDS: DOXYCYCLINE 100MG+NS 250ML IV SCH ×2 (10:40→23:34)
[2022-02-11] MEDS ORDERED: CEFAZOLIN SODIUM 1 GM VIAL IVP SCH (16:00)
[2022-02-11] MEDS ORDERED: PROTAMINE SULFATE 10 MG/ML 25ML VIAL IV ONE (18:02)
[2022-02-11] MEDS ORDERED: EPINEPHRINE PF 1MG (1:1,000) 1 MG/ML AMP ONE (18:02)
[2022-02-11] MEDS ORDERED: AMINOCAPROIC ACID 5,000MG VIAL ONE (18:02)
[2022-02-11] MEDS ORDERED: ESMOLOL HCL 10 MG/ML 10 ML VIAL ONE (18:02)
[2022-02-11] MEDS ORDERED: HEPARIN 10,000 UNIT/10ML (1,000 UNIT/ML) VIAL ONE ×2 (18:02→20:00)
[2022-02-11] MEDS ORDERED: NOREPINEPHRINE BITARTRATE 1 MG/1 ML ML IV ONE (18:02)
[2022-02-11] MEDS ORDERED: SODIUM BICARB 50MEQ 50ML VIAL 150 ML ONE (18:02)
[2022-02-11] MEDS ORDERED: ROCURONIUM 10MG/1ML SYR 10 MG/ML ML ONE ×2 (18:03→21:29)
[2022-02-11] MEDS ORDERED: MIDAZOLAM HCL 1 MG/ML 2ML VIAL ONE (18:03)
[2022-02-11] MEDS ORDERED: FENTANYL CITRATE PF 50 MCG/1 ML 20ML VIAL IJ ONE (18:03)
[2022-02-11] MEDS ORDERED: PROPOFOL 10 MG/ML 20ML VIAL IV ONE (18:03)
[2022-02-11] MEDS ORDERED: KETAMINE 50MG/ML SYRINGE 50 MG/ML DISP.SYRIN IV ONE (18:05)
[2022-02-11] MEDS ORDERED: CEFAZOLIN SODIUM 2 GM VIAL IV ONE (18:20)
[2022-02-11] MEDS ORDERED: PAPAVERINE HCL 30 MG/ML 2ML VIAL ONE (18:38)
[2022-02-11] MEDS ORDERED: CEFAZOLIN SODIUM 1 GM VIAL ONE (18:38)
[2022-02-11] MEDS ORDERED: CEFAZOLIN SODIUM 1 GM VIAL IRRIG ONE (18:52)
[2022-02-11] MEDS ORDERED: PAPAVERINE HCL 30 MG/ML 2ML VIAL IRRIG ONE (18:52)
[2022-02-11 18:54] LABS: ABG BASE EXCESS 0.8 mmol/L (-2.0-3.0); ABG HCO3 24.5 mmol/L (21.0-28.0); ABG OXYGEN SATURATION 97.7 % (95.0-99.0); ABG PCO2 36 mmHg (35-48)
[2022-02-11] MEDS ORDERED: AMIODARONE 150MG VIAL ONE (20:40)
[2022-02-11] MEDS ORDERED: MAGNESIUM SULFATE 1 GM/2 ML VIAL ONE (20:47)
[2022-02-11] MEDS ORDERED: INSULIN REGULAR, HUMAN 3ML 100 UNIT in 0.9%NACL 100ML 99 ML IV SCH ×2 (21:00)
[2022-02-11] MEDS ORDERED: PROPOFOL 1000 MG/100 ML 100 ML IV PRN (21:00)
[2022-02-11] MEDS ORDERED: MORPHINE 2 MG SYG IV PRN ×2 (21:00)
[2022-02-11] MEDS ORDERED: 0.9%NACL 10ML VIAL IVP PRN (21:00)
[2022-02-11] MEDS ORDERED: ALBUMIN (HUMAN) 5% 250 ML IV PRN (21:00)
[2022-02-11] MEDS ORDERED: DEXTROSE 50%-WATER 50 ML DISP.SYRIN IV PRN (21:00)
[2022-02-11] MEDS ORDERED: POTASSIUM PHOS 15 mMOL+NS250ML 250 ML IV PRN (21:00)
[2022-02-11] MEDS ORDERED: ONDANSETRON 4MG INJ IV PRN (21:00)
[2022-02-11] MEDS ORDERED: AMINOCAPROIC ACID 5,000MG VIAL 15,000 MG in 0.9% NACL 250ML 250 ML IV SCH (21:00)
[2022-02-11] MEDS ORDERED: ACETAMINOPHEN 650 MG SUPPOSITORY RC PRN (21:00)
[2022-02-11] MEDS ORDERED: NITROGLYCERIN 50MG/D5W 250ML 250 BOT IV SCH (21:00)
[2022-02-11] MEDS ORDERED: 0.9% NACL 500ML IV.SOLN 500 ML IV SCH (21:00)
[2022-02-11] MEDS ORDERED: POTASSIUM CHLORIDE 20MEQ/100ML 100 ML IV PRN (21:00)
[2022-02-11] MEDS ORDERED: NOREPINEPHRIN 4MG/NS 250ML 250 ML IV PRN (21:00)
[2022-02-11] MEDS ORDERED: GLUCAGON 1MG KIT 1 MG ML IM PRN (21:00)
[2022-02-11 21:29] LABS: ABG HCO3 23.1 mmol/L (21.0-28.0); ABG OXYGEN SATURATION 96.2 % (95.0-99.0); ABG PCO2 36 mmHg (35-48)
[2022-02-11] MEDS ORDERED: VASOPRESSIN 20 UNITS/ML 1ML VIAL ONE (21:32)
[2022-02-11] MEDS ORDERED: LIDOCAINE HCL-MPF 2% 10ML AMP IJ ONE (21:54)
[2022-02-11] MEDS ORDERED: EPHEDRINE SULFATE 50 MG/ML AMPULE ONE (21:58)
[2022-02-11 22:17] LABS: HEMATOCRIT 31.7 % (42-54); MEAN CORPUSCULAR HEMOGLOBIN 29.3 pg (27.0-33.0); MEAN CORPUSCULAR HGB CONC 34.1 g/dL (32.0-36.0); MEAN CORPUSCULAR VOLUME 86.1 fL (79-99); RED BLOOD CELL COUNT(AUTO) 3.68 MIL/uL (4.50-6.20); RED CELL DISTRIBUTION WIDTH 12.8 % (11.0-15.5); WHITE BLOOD COUNT (AUTO) 23.2 K/uL (4.8-10.8)
[2022-02-11 22:27] LABS: INR 1.05 (0.85-1.15); PROTHROMBIN TIME 11.4 SEC (9.6-11.6)
[2022-02-11 22:29] LABS: CREATININE 0.8 mg/dL (0.5-1.5); MAGNESIUM 2.3 mg/dL (1.80-2.40); PARTIAL THROMBOPLASTIN TIME 23.6 SEC (26.3-35.5); PHOSPHORUS 7.1 mg/dL (2.5-4.9); POTASSIUM 4.3 mmol/L (3.5-5.1)
[2022-02-11 23:01] LABS: ABG BASE EXCESS -5.9 mmol/L (-2.0-3.0); ABG HCO3 19.6 mmol/L (21.0-28.0); ABG OXYGEN SATURATION 99.2 % (95.0-99.0); ABG PCO2 39 mmHg (35-48)
[2022-02-11] MEDS: SODIUM BICARB 50MEQ 50ML VIAL IV PRN ×3 (23:06→23:18)
[2022-02-11] MEDS: 0.9%NACL 1000ML 1,000 ML IV SCH (23:20)
[2022-02-11] MEDS: FAMOTIDINE 20MG VIAL IV SCH (23:33)
[2022-02-12] VITALS (97 sets, daily range): BP systolic 71–170; BP diastolic 50–137
[2022-02-12 00:12] LABS: ABG HCO3 23.5 mmol/L (21.0-28.0); ABG PCO2 30 mmHg (35-48)
[2022-02-12] MEDS ORDERED: CALCIUM GLUC 1GM/10ML VIAL ONE ×3 (00:14→08:47)
[2022-02-12] MEDS: CALCIUM GLUC 1GM 1 GM in 0.9%NACL 50ML 50 ML IV PRN ×4 (00:19→09:33)
[2022-02-12] MEDS ORDERED: VASOPRESSIN 20 UNITS/ML 1ML VIAL ONE (00:39)
[2022-02-12] MEDS ORDERED: VASOPRESSIN 40 UNITS in 0.9%NACL 50ML 40 ML IV SCH (01:00)
[2022-02-12 01:16] LABS: ABG BASE EXCESS 0.9 mmol/L (-2.0-3.0); ABG HCO3 23.5 mmol/L (21.0-28.0); ABG OXYGEN SATURATION 98.5 % (95.0-99.0); ABG PCO2 31 mmHg (35-48)
[2022-02-12] MEDS ORDERED: DEXMEDETOMIDINE 400MCG/NS100ML IV ONE (01:17)
[2022-02-12] MEDS: POTASSIUM CHLORIDE 20MEQ/100ML 100 ML IV PRN ×4 (01:18→17:49)
[2022-02-12] MEDS: CEFAZOLIN SODIUM 1 GM VIAL IV SCH ×3 (01:23→17:37)
[2022-02-12 02:15] LABS: ABG BASE EXCESS 0.3 mmol/L (-2.0-3.0); ABG HCO3 23.4 mmol/L (21.0-28.0); ABG OXYGEN SATURATION 97.6 % (95.0-99.0); ABG PCO2 33 mmHg (35-48)
[2022-02-12 03:16] LABS: ABG OXYGEN SATURATION 97.4 % (95.0-99.0); ABG PCO2 32 mmHg (35-48)
[2022-02-12 04:06] LABS: ABG BASE EXCESS 1.2 mmol/L (-2.0-3.0); ABG HCO3 24.4 mmol/L (21.0-28.0); ABG OXYGEN SATURATION 97.5 % (95.0-99.0); ABG PCO2 34 mmHg (35-48)
[2022-02-12 05:05] LABS: ABG BASE EXCESS 2.7 mmol/L (-2.0-3.0); ABG HCO3 25.7 mmol/L (21.0-28.0); ABG OXYGEN SATURATION 97.4 % (95.0-99.0); ABG PCO2 34 mmHg (35-48)
[2022-02-12 05:18] LABS: HEMATOCRIT 28.2 % (42-54); MEAN CORPUSCULAR HEMOGLOBIN 28.9 pg (27.0-33.0); MEAN CORPUSCULAR VOLUME 84.9 fL (79-99); NUCLEATED RED BLOOD CELLS 0.1 % (0.0-0.19); PLATELET COUNT (AUTO) 175 K/uL (130-400); RED BLOOD CELL COUNT(AUTO) 3.32 MIL/uL (4.50-6.20); RED CELL DISTRIBUTION WIDTH 12.7 % (11.0-15.5); WHITE BLOOD COUNT (AUTO) 15.1 K/uL (4.8-10.8)
[2022-02-12 05:31] LABS: INR 1.02 (0.85-1.15); PROTHROMBIN TIME 11.1 SEC (9.6-11.6)
[2022-02-12 05:32] LABS: PARTIAL THROMBOPLASTIN TIME 23.8 SEC (26.3-35.5)
[2022-02-12 05:52] LABS: MAGNESIUM 1.9 mg/dL (1.80-2.40); PHOSPHORUS 5.8 mg/dL (2.5-4.9); POTASSIUM 4.3 mmol/L (3.5-5.1); TOTAL PROTEIN, SERUM 5.1 g/dL (6.0-8.3)
[2022-02-12] MEDS ORDERED: NOREPINEPHRIN 8MG/250ML NS PMX 250 ML IV ONE (05:52)
[2022-02-12] MEDS: MAGNESIUM 2GM PREMIX 50ML 50 ML IV PRN ×3 (06:05→17:49)
[2022-02-12 06:17] LABS: BAND NEUTROPHILS % (MANUAL) 8 % (0-2); LYMPHOCYTES % (MANUAL) 8 % (22-44); MAN.DIFF COMMENT-IMPRESSION MANUAL DIFFERENTIAL; MONOCYTES % (MANUAL) 9 % (2-9); REACTIVE LYMPHOCYTES 2 % (0-0); SEGMENTED NEUTROPHILS % 73 % (40-70)
[2022-02-12 06:18] LABS: ABG BASE EXCESS 2.8 mmol/L (-2.0-3.0); ABG HCO3 25.7 mmol/L (21.0-28.0); ABG OXYGEN SATURATION 97.8 % (95.0-99.0); ABG PCO2 34 mmHg (35-48)
[2022-02-12 07:21] LABS: ABG BASE EXCESS 2.3 mmol/L (-2.0-3.0); ABG OXYGEN SATURATION 97.5 % (95.0-99.0); ABG PCO2 32 mmHg (35-48)
[2022-02-12 08:25] LABS: ABG BASE EXCESS 4.1 mmol/L (-2.0-3.0); ABG OXYGEN SATURATION 97.6 % (95.0-99.0); ABG PCO2 34 mmHg (35-48)
[2022-02-12] MEDS: ASPIRIN 81 MG EC TAB PO SCH (08:39)
[2022-02-12] MEDS: FAMOTIDINE 20MG VIAL IV SCH ×2 (08:39→19:40)
[2022-02-12] MEDS: CILOSTAZOL 100 MG TAB PO SCH ×2 (08:39→21:00)
[2022-02-12] MEDS: CHLORHEXIDINE GLUCONATE 473 ML MOUTHWASH MM SCH ×2 (08:39→19:41)
[2022-02-12] MEDS: PANTOPRAZOLE 40 MG/VIAL IVP SCH ×2 (09:00→19:40)
[2022-02-12] MEDS ORDERED: SODIUM CHLORIDE FOR INHALATION 3 ML VIAL.NEB. IH ONE (09:28)
[2022-02-12 09:33] LABS: ABG BASE EXCESS 3.1 mmol/L (-2.0-3.0); ABG HCO3 26.1 mmol/L (21.0-28.0); ABG OXYGEN SATURATION 97.7 % (95.0-99.0); ABG PCO2 34 mmHg (35-48)
[2022-02-12] MEDS: DOXYCYCLINE 100MG+NS 250ML IV SCH ×2 (09:46→22:37)
[2022-02-12] MEDS: DEXMEDETOMIDINE 400MCG/NS100ML IV SCH ×5 (09:50→22:44)
[2022-02-12 10:41] LABS: ABG BASE EXCESS 4.2 mmol/L (-2.0-3.0); ABG HCO3 27.2 mmol/L (21.0-28.0); ABG OXYGEN SATURATION 97.8 % (95.0-99.0); ABG PCO2 34 mmHg (35-48)
[2022-02-12] MEDS: ARTIFICAL TEARS SOL 15 ML OU SCH ×4 (11:00→22:38)
[2022-02-12] MEDS ORDERED: SODIUM CHLORIDE 3% FOR INHALATION 4 ML/AMP VIAL.NEB IH PRN (16:00)
[2022-02-12] MEDS: 0.9%NACL 1000ML 1,000 ML IV SCH (16:26)
[2022-02-12 16:57] LABS: CREATININE 0.9 mg/dL (0.5-1.5); MAGNESIUM 1.9 mg/dL (1.80-2.40); POTASSIUM 3.9 mmol/L (3.5-5.1)
[2022-02-12] MEDS ORDERED: SODIUM CHLORIDE 3% FOR INHALATION 4 ML/AMP VIAL.NEB IH ONE ×2 (18:35→22:58)
[2022-02-12] MEDS: IPRATROPIUM 0.5 MG/2.5 ML INH IH SCH ×2 (18:42→23:10)
[2022-02-12 21:46] LABS: CREATININE 0.9 mg/dL (0.5-1.5); MAGNESIUM 2.1 mg/dL (1.80-2.40); POTASSIUM 4.1 mmol/L (3.5-5.1)
[2022-02-12] MEDS ORDERED: BISACODYL 10 MG SUPP.RECT RC ONE (23:05)
[2022-02-13] VITALS (115 sets, daily range): BP systolic 75–167; BP diastolic 34–101
[2022-02-13] MEDS: DEXMEDETOMIDINE 400MCG/NS100ML IV SCH ×2 (02:12→05:52)
[2022-02-13 03:53] LABS: CREATININE 0.9 mg/dL (0.5-1.5); POTASSIUM 4.1 mmol/L (3.5-5.1)
[2022-02-13 04:06] LABS: BASOPHILS % (AUTO) 0.1 % (0.0-5.0); EOSINOPHILS % (AUTO) 0.1 % (0.0-8.0); MEAN CORPUSCULAR HEMOGLOBIN 29.6 pg (27.0-33.0); MEAN CORPUSCULAR HGB CONC 33.3 g/dL (32.0-36.0); MEAN CORPUSCULAR VOLUME 88.7 fL (79-99); MONOCYTES % (AUTO) 12.3 % (3.0-13.0); NEUTROPHILS % (AUTO) 68.9 % (40.0-77.0); NUCLEATED RED BLOOD CELLS 0.3 % (0.0-0.19); PLATELET COUNT (AUTO) 109 K/uL (130-400); RED CELL DISTRIBUTION WIDTH 13.5 % (11.0-15.5); WHITE BLOOD COUNT (AUTO) 11.2 K/uL (4.8-10.8)
[2022-02-13 04:15] LABS: HEMATOCRIT 20.4 % (42-54)
[2022-02-13] MEDS: ARTIFICAL TEARS SOL 15 ML OU SCH ×4 (05:52→22:32)
[2022-02-13] MEDS: INSULIN HUMULIN R 100 UNIT/ML 3ML SQ SCH ×4 (06:37→20:23)
[2022-02-13] MEDS: IPRATROPIUM 0.5 MG/2.5 ML INH IH SCH ×4 (06:39→23:43)
[2022-02-13] MEDS: FAMOTIDINE 20MG VIAL IV SCH ×2 (09:47→20:16)
[2022-02-13] MEDS: DOXYCYCLINE 100MG+NS 250ML IV SCH ×2 (09:47→22:30)
[2022-02-13] MEDS: PANTOPRAZOLE 40 MG/VIAL IVP SCH ×2 (09:47→20:16)
[2022-02-13] MEDS: CILOSTAZOL 100 MG TAB PO SCH ×2 (09:48→20:56)
[2022-02-13] MEDS: ASPIRIN 81 MG EC TAB PO SCH (09:48)
[2022-02-13] MEDS: CHLORHEXIDINE GLUCONATE 473 ML MOUTHWASH MM SCH ×2 (09:49→20:56)
[2022-02-13] MEDS: ZOSYN 3.375GM +NS 50ML IV SCH ×2 (11:31→17:44)
[2022-02-13 12:30] LABS: APPEARANCE,URINE SL CLOUDY (CLEAR); BILIRUBIN,URINE SMALL mg/dL (NEGATIVE); COLOR,URINE YELLOW (YELLOW); GLUCOSE, URINE (UA) 500 mg/dL (NEGATIVE); KETONES,URINE >=80 mg/dL (NEGATIVE); LEUKOCYTE ESTERASE ,URINE NEGATIVE Leu/uL (NEGATIVE); NITRATE,URINE NEGATIVE (NEGATIVE); OCCULT BLOOD,URINE LARGE (NEGATIVE); PROTEIN,URINE TRACE mg/dL (NEGATIVE); UROBILINOGEN,URINE 0.2 mg/dL (0.2-1.0)
[2022-02-13 12:41] LABS: BACTERIA,URINE Rare /HPF (None Seen); RBC,URINE 26-50 /HPF (0-1); WBC,URINE R /HPF (0-1)
[2022-02-13] MEDS: TRAMADOL HCL 50 MG TABLET PO PRN (12:53)
[2022-02-13 12:56] LABS: HEMATOCRIT 30.1 % (42-54); MEAN CORPUSCULAR HEMOGLOBIN 29.1 pg (27.0-33.0); MEAN CORPUSCULAR HGB CONC 33.2 g/dL (32.0-36.0); MEAN CORPUSCULAR VOLUME 87.5 fL (79-99); NUCLEATED RED BLOOD CELLS 0.2 % (0.0-0.19); RED BLOOD CELL COUNT(AUTO) 3.44 MIL/uL (4.50-6.20); RED CELL DISTRIBUTION WIDTH 13.6 % (11.0-15.5); WHITE BLOOD COUNT (AUTO) 9.7 K/uL (4.8-10.8)
[2022-02-13 13:11] LABS: ALBUMIN 2.6 g/dL (3.5-5.0); CREATININE 1.1 mg/dL (0.5-1.5); POTASSIUM 3.9 mmol/L (3.5-5.1); TOTAL PROTEIN, SERUM 5.8 g/dL (6.0-8.3)
[2022-02-13 13:29] LABS: PROTHROMBIN TIME 10.9 SEC (9.6-11.6)
[2022-02-13 13:30] LABS: PARTIAL THROMBOPLASTIN TIME 29.4 SEC (26.3-35.5)
[2022-02-13] MEDS ORDERED: KETOROLAC 15MG/ML VIAL (15MG/ML) IV ONE (17:00)
[2022-02-14] VITALS (23 sets, daily range): BP systolic 118–176; BP diastolic 54–97
[2022-02-14] MEDS: TRAMADOL HCL 50 MG TABLET PO PRN ×4 (01:04→21:53)
[2022-02-14] MEDS: ZOSYN 3.375GM +NS 50ML IV SCH ×3 (02:09→18:02)
[2022-02-14 04:01] LABS: HEMATOCRIT 29.4 % (42-54); MEAN CORPUSCULAR HEMOGLOBIN 29.3 pg (27.0-33.0); MEAN CORPUSCULAR HGB CONC 33.7 g/dL (32.0-36.0); NUCLEATED RED BLOOD CELLS 0.2 % (0.0-0.19); RED BLOOD CELL COUNT(AUTO) 3.38 MIL/uL (4.50-6.20); RED CELL DISTRIBUTION WIDTH 13.8 % (11.0-15.5); WHITE BLOOD COUNT (AUTO) 13.2 K/uL (4.8-10.8)
[2022-02-14] MEDS: ARTIFICAL TEARS SOL 15 ML OU SCH ×4 (05:20→21:46)
[2022-02-14] MEDS: INSULIN HUMULIN R 100 UNIT/ML 3ML SQ SCH ×4 (05:59→21:00)
[2022-02-14] MEDS: IPRATROPIUM 0.5 MG/2.5 ML INH IH SCH ×4 (06:36→23:23)
[2022-02-14 07:30] LABS: HEMATOCRIT 30.4 % (42-54); MEAN CORPUSCULAR HGB CONC 32.9 g/dL (32.0-36.0); MEAN CORPUSCULAR VOLUME 88.1 fL (79-99); NUCLEATED RED BLOOD CELLS 0.2 % (0.0-0.19); RED BLOOD CELL COUNT(AUTO) 3.45 MIL/uL (4.50-6.20); RED CELL DISTRIBUTION WIDTH 13.8 % (11.0-15.5); WHITE BLOOD COUNT (AUTO) 12.4 K/uL (4.8-10.8)
[2022-02-14 07:39] LABS: INR 0.99 (0.85-1.15); PROTHROMBIN TIME 10.8 SEC (9.6-11.6)
[2022-02-14 07:40] LABS: PARTIAL THROMBOPLASTIN TIME 64.1 SEC (26.3-35.5)
[2022-02-14 07:49] LABS: ALBUMIN 2.4 g/dL (3.5-5.0); CREATININE 0.9 mg/dL (0.5-1.5); POTASSIUM 3.5 mmol/L (3.5-5.1); TOTAL PROTEIN, SERUM 5.9 g/dL (6.0-8.3)
[2022-02-14] MEDS: KCL 20 MEQ ERTAB PO PRN ×2 (08:18→10:09)
[2022-02-14] MEDS: CALCIUM GLUC 1GM 1 GM in 0.9%NACL 50ML 50 ML IV PRN (08:18)
[2022-02-14] MEDS ORDERED: INSULIN GLARGINE 100 UNITS/ML 10 ML VIAL SQ SCH (08:30)
[2022-02-14] MEDS: FUROSEMIDE 20MG VIAL IV SCH ×2 (08:37→21:43)
[2022-02-14] MEDS: CILOSTAZOL 100 MG TAB PO SCH ×2 (08:38→21:43)
[2022-02-14] MEDS: ASPIRIN 81 MG EC TAB PO SCH (08:38)
[2022-02-14] MEDS: METOPROLOL TARTRATE 25 MG TAB PO SCH ×2 (08:38→21:43)
[2022-02-14] MEDS: FAMOTIDINE 20MG VIAL IV SCH ×2 (08:38→21:42)
[2022-02-14] MEDS: CHLORHEXIDINE GLUCONATE 473 ML MOUTHWASH MM SCH ×2 (08:45→21:44)
[2022-02-14] MEDS: DOXYCYCLINE 100MG+NS 250ML IV SCH ×2 (10:08→21:42)
[2022-02-14] MEDS ORDERED: KETOROLAC 15MG/ML VIAL (15MG/ML) IV SCH (11:30)
[2022-02-14 15:54] LABS: CREATININE 1.1 mg/dL (0.5-1.5); POTASSIUM 3.7 mmol/L (3.5-5.1)
[2022-02-14] MEDS: BISACODYL 5 MG TABLET.DR PO SCH (21:43)
[2022-02-14] MEDS: INSULIN GLARGINE 100 UNITS/ML 10 ML VIAL SQ SCH (21:50)
[2022-02-15 00:35] VITALS: BP 120/75
[2022-02-15] MEDS: ZOSYN 3.375GM +NS 50ML IV SCH ×3 (02:10→18:05)
[2022-02-15 03:13] VITALS: BP 125/76
[2022-02-15] MEDS: ARTIFICAL TEARS SOL 15 ML OU SCH ×3 (04:20→16:52)
[2022-02-15 04:59] LABS: BASOPHILS % (AUTO) 0.1 % (0.0-5.0); EOSINOPHILS % (AUTO) 2.6 % (0.0-8.0); HEMATOCRIT 30.9 % (42-54); LYMPHOCYTES % (AUTO) 12.2 % (21.0-51.0); MEAN CORPUSCULAR HGB CONC 32.7 g/dL (32.0-36.0); MEAN CORPUSCULAR VOLUME 88.8 fL (79-99); MONOCYTES % (AUTO) 8.5 % (3.0-13.0); NEUTROPHILS % (AUTO) 75.7 % (40.0-77.0); PLATELET COUNT (AUTO) 177 K/uL (130-400); RED BLOOD CELL COUNT(AUTO) 3.48 MIL/uL (4.50-6.20); RED CELL DISTRIBUTION WIDTH 13.5 % (11.0-15.5); WHITE BLOOD COUNT (AUTO) 11.8 K/uL (4.8-10.8)
[2022-02-15] MEDS: TRAMADOL HCL 50 MG TABLET PO PRN ×4 (05:28→21:22)
[2022-02-15] MEDS: INSULIN GLARGINE 100 UNITS/ML 10 ML VIAL SQ SCH ×2 (05:57→21:51)
[2022-02-15 05:58] LABS: ALBUMIN 2.3 g/dL (3.5-5.0); CREATININE 0.8 mg/dL (0.5-1.5); MAGNESIUM 1.8 mg/dL (1.80-2.40); PHOSPHORUS 2.7 mg/dL (2.5-4.9); POTASSIUM 3.3 mmol/L (3.5-5.1)
[2022-02-15] MEDS: KCL 20 MEQ ERTAB PO PRN ×2 (06:31→09:05)
[2022-02-15] MEDS: MAGNESIUM 2GM PREMIX 50ML 50 ML IV PRN (06:31)
[2022-02-15] MEDS: INSULIN HUMULIN R 100 UNIT/ML 3ML SQ SCH ×4 (06:40→21:50)
[2022-02-15] MEDS: IPRATROPIUM 0.5 MG/2.5 ML INH IH SCH ×4 (07:36→23:23)
[2022-02-15 08:43] VITALS: BP 137/79
[2022-02-15] MEDS: ASPIRIN 81 MG EC TAB PO SCH (08:44)
[2022-02-15] MEDS: CILOSTAZOL 100 MG TAB PO SCH ×2 (08:44→21:19)
[2022-02-15] MEDS: FUROSEMIDE 20MG VIAL IV SCH ×2 (08:44→21:19)
[2022-02-15] MEDS: METOPROLOL TARTRATE 25 MG TAB PO SCH (08:44)
[2022-02-15] MEDS: FAMOTIDINE 20MG VIAL IV SCH ×2 (08:44→21:19)
[2022-02-15] MEDS: BISACODYL 5 MG TABLET.DR PO SCH ×2 (08:44→21:19)
[2022-02-15] MEDS: CHLORHEXIDINE GLUCONATE 473 ML MOUTHWASH MM SCH ×2 (08:45→21:20)
[2022-02-15] MEDS: DOXYCYCLINE 100MG+NS 250ML IV SCH (11:33)
[2022-02-15] MEDS ORDERED: SODIUM BICARB 50MEQ 50ML VIAL IV SCH (13:51)
[2022-02-15 15:51] VITALS: BP 122/70
[2022-02-15] MEDS: SODIUM BICARB 8.4% 50ML SYRING 200 MEQ in DEXTROSE 5%-WATER 800 ML IVP SCH (17:53)
[2022-02-15 19:09] VITALS: BP 136/78
[2022-02-15] MEDS: GABAPENTIN 300 MG CAPSULE PO SCH (21:16)
[2022-02-15 23:50] VITALS: BP 120/62
[2022-02-16] VITALS (12 sets, daily range): BP systolic 54–147; BP diastolic 27–80
[2022-02-16] MEDS: ARTIFICAL TEARS SOL 15 ML OU SCH ×5 (00:35→22:30)
[2022-02-16] MEDS: DOXYCYCLINE 100MG+NS 250ML IV SCH (00:35)
[2022-02-16] MEDS: ZOSYN 3.375GM +NS 50ML IV SCH ×3 (02:35→19:28)
[2022-02-16] MEDS: TRAMADOL HCL 50 MG TABLET PO PRN ×2 (02:36→09:44)
[2022-02-16 04:28] LABS: BASOPHILS % (AUTO) 0.2 % (0.0-5.0); EOSINOPHILS % (AUTO) 4.3 % (0.0-8.0); HEMATOCRIT 26.8 % (42-54); LYMPHOCYTES % (AUTO) 17.9 % (21.0-51.0); MEAN CORPUSCULAR HEMOGLOBIN 29.6 pg (27.0-33.0); MEAN CORPUSCULAR HGB CONC 34.3 g/dL (32.0-36.0); MEAN CORPUSCULAR VOLUME 86.2 fL (79-99); MONOCYTES % (AUTO) 8.2 % (3.0-13.0); NUCLEATED RED BLOOD CELLS 0.3 % (0.0-0.19); PLATELET COUNT (AUTO) 248 K/uL (130-400); RED BLOOD CELL COUNT(AUTO) 3.11 MIL/uL (4.50-6.20); RED CELL DISTRIBUTION WIDTH 13.2 % (11.0-15.5)
[2022-02-16 04:56] LABS: CREATININE 0.7 mg/dL (0.5-1.5); TOTAL PROTEIN, SERUM 5.4 g/dL (6.0-8.3)
[2022-02-16 05:07] LABS: POTASSIUM 2.7 mmol/L (3.5-5.1)
[2022-02-16] MEDS: POTASSIUM CHLORIDE 20MEQ/100ML 100 ML IV PRN ×2 (05:27→23:19)
[2022-02-16] MEDS: POTASSIUM CHLORIDE 10% ELIXIR 20 MEQ/15 ML UDCUP PO PRN (05:33)
[2022-02-16] MEDS: KCL 20 MEQ ERTAB PO PRN ×2 (05:33→09:43)
[2022-02-16] MEDS: INSULIN HUMULIN R 100 UNIT/ML 3ML SQ SCH ×4 (06:01→21:00)
[2022-02-16] MEDS: SODIUM BICARB 8.4% 50ML SYRING 200 MEQ in DEXTROSE 5%-WATER 800 ML IVP SCH (06:02)
[2022-02-16] MEDS: INSULIN GLARGINE 100 UNITS/ML 10 ML VIAL SQ SCH ×2 (06:08→22:08)
[2022-02-16] MEDS: IPRATROPIUM 0.5 MG/2.5 ML INH IH SCH ×4 (06:48→23:59)
[2022-02-16] MEDS: CHLORHEXIDINE GLUCONATE 473 ML MOUTHWASH MM SCH ×2 (09:00→21:00)
[2022-02-16] MEDS: ASPIRIN 81 MG EC TAB PO SCH (09:42)
[2022-02-16] MEDS: LISINOPRIL 5 MG TABLET PO SCH (09:42)
[2022-02-16] MEDS: BISACODYL 5 MG TABLET.DR PO SCH ×2 (09:42→21:00)
[2022-02-16] MEDS: METOPROLOL SUCCINATE 25 MG TAB.SR.24H PO SCH (09:42)
[2022-02-16] MEDS: GABAPENTIN 300 MG CAPSULE PO SCH ×2 (09:42→14:00)
[2022-02-16] MEDS: CILOSTAZOL 100 MG TAB PO SCH ×2 (09:44→21:00)
[2022-02-16] MEDS: FAMOTIDINE 20MG VIAL IV SCH ×2 (09:44→22:06)
[2022-02-16] MEDS: FUROSEMIDE 20MG VIAL IV SCH ×2 (09:44→22:06)
[2022-02-16] MEDS ORDERED: LIDOCAINE HCL 1% 10 ML VIAL ONE (13:51)
[2022-02-16] MEDS ORDERED: HEPARIN 10,000 UNIT/10ML (1,000 UNIT/ML) VIAL ONE (13:51)
[2022-02-16] MEDS ORDERED: NITROGLYCERIN 50MG VIAL ONE (13:51)
[2022-02-16] MEDS ORDERED: IODIXANOL 320 MG/ML 100 ML VIAL ONE ×2 (13:51→14:54)
[2022-02-16] MEDS ORDERED: EPTIFIBATIDE 2 MG/ML 10 ML VIAL IVP ONE ×2 (16:37→16:41)
[2022-02-16] MEDS ORDERED: EPTIFIBATIDE 75MG/100ML BOTTLE 100 ML IV ONE (16:43)
[2022-02-16] MEDS ORDERED: HEPARIN 25,000 UNITS/250ML D5W 250 ML IV ONE (16:43)
[2022-02-16] MEDS ORDERED: 0.9%NACL 1000ML 1,000 ML IV SCH (17:00)
[2022-02-16] MEDS ORDERED: HEPARIN 5,000 UNIT VIAL SQ PRN (17:00)
[2022-02-16 18:15] LABS: ABG HCO3 31.9 mmol/L (21.0-28.0); ABG OXYGEN SATURATION 99.1 % (95.0-99.0); ABG PCO2 47 mmHg (35-48)
[2022-02-16 20:05] LABS: CREATININE 0.7 mg/dL (0.5-1.5); POTASSIUM 3.5 mmol/L (3.5-5.1)
[2022-02-16 20:08] LABS: MAGNESIUM 1.9 mg/dL (1.80-2.40); PHOSPHORUS 2.4 mg/dL (2.5-4.9)
[2022-02-16] MEDS ORDERED: LORAZEPAM 2 MG/ML 1 ML VIAL ONE (20:59)
[2022-02-16] MEDS ORDERED: LORAZEPAM 2 MG/ML 1 ML VIAL IVP ONE (21:00)
[2022-02-16] MEDS: DOXYCYCLINE HYCLATE 100 MG TABLET PO SCH (21:00)
[2022-02-16] MEDS ORDERED: ASPIRIN 300 MG SUPPOSITORY PR SCH (21:00)
[2022-02-16] MEDS: EPTIFIBATIDE 75MG/100ML BOTTLE 100 ML IV SCH (21:58)
[2022-02-17] VITALS (39 sets, daily range): BP systolic 90–168; BP diastolic 46–112
[2022-02-17] MEDS: ZOSYN 3.375GM +NS 50ML IV SCH ×3 (02:54→17:26)
[2022-02-17] MEDS: ARTIFICAL TEARS SOL 15 ML OU SCH ×4 (05:00→22:19)
[2022-02-17 06:11] LABS: BASOPHILS % (AUTO) 0.2 % (0.0-5.0); EOSINOPHILS % (AUTO) 1.2 % (0.0-8.0); HEMATOCRIT 27.7 % (42-54); LYMPHOCYTES % (AUTO) 13.2 % (21.0-51.0); MEAN CORPUSCULAR HEMOGLOBIN 29.6 pg (27.0-33.0); MEAN CORPUSCULAR HGB CONC 33.9 g/dL (32.0-36.0); MEAN CORPUSCULAR VOLUME 87.1 fL (79-99); MONOCYTES % (AUTO) 6.4 % (3.0-13.0); NEUTROPHILS % (AUTO) 77.3 % (40.0-77.0); NUCLEATED RED BLOOD CELLS 0.2 % (0.0-0.19); PLATELET COUNT (AUTO) 305 K/uL (130-400); RED BLOOD CELL COUNT(AUTO) 3.18 MIL/uL (4.50-6.20); RED CELL DISTRIBUTION WIDTH 13.6 % (11.0-15.5); WHITE BLOOD COUNT (AUTO) 12.3 K/uL (4.8-10.8)
[2022-02-17 06:33] LABS: ALBUMIN 2.1 g/dL (3.5-5.0); CREATININE 0.6 mg/dL (0.5-1.5); POTASSIUM 3.3 mmol/L (3.5-5.1); TOTAL PROTEIN, SERUM 5.8 g/dL (6.0-8.3)
[2022-02-17] MEDS: IPRATROPIUM 0.5 MG/2.5 ML INH IH SCH ×4 (06:49→23:05)
[2022-02-17] MEDS: INSULIN HUMULIN R 100 UNIT/ML 3ML SQ SCH ×4 (06:56→21:00)
[2022-02-17] MEDS: INSULIN GLARGINE 100 UNITS/ML 10 ML VIAL SQ SCH ×2 (06:58→21:00)
[2022-02-17] MEDS: EPTIFIBATIDE 75MG/100ML BOTTLE 100 ML IV SCH (06:59)
[2022-02-17] MEDS: PANTOPRAZOLE 40 MG TAB DR PO SCH (09:00)
[2022-02-17] MEDS ORDERED: ASPIRIN 81MG CHEW TAB PO SCH (09:00)
[2022-02-17] MEDS: CILOSTAZOL 100 MG TAB PO SCH ×2 (09:12→20:11)
[2022-02-17] MEDS: ASPIRIN 81 MG EC TAB PO SCH (09:12)
[2022-02-17] MEDS: FAMOTIDINE 20MG VIAL IV SCH (09:12)
[2022-02-17] MEDS: FUROSEMIDE 20MG VIAL IV SCH ×2 (09:12→20:22)
[2022-02-17] MEDS: BISACODYL 5 MG TABLET.DR PO SCH ×2 (09:12→20:11)
[2022-02-17] MEDS: DOXYCYCLINE HYCLATE 100 MG TABLET PO SCH ×2 (09:12→20:12)
[2022-02-17] MEDS: CHLORHEXIDINE GLUCONATE 473 ML MOUTHWASH MM SCH ×2 (09:13→21:00)
[2022-02-17] MEDS: POTASSIUM CHLORIDE 10% ELIXIR 20 MEQ/15 ML UDCUP PO PRN ×5 (09:13→22:20)
[2022-02-17] MEDS: LISINOPRIL 5 MG TABLET PO SCH (09:13)
[2022-02-17] MEDS: METOPROLOL SUCCINATE 25 MG TAB.SR.24H PO SCH (09:16)
[2022-02-17] MEDS ORDERED: DEXTROSE 5 % AND 0.9 % NACL 1,000 ML IV SCH (16:30)
[2022-02-17] MEDS ORDERED: HYDRALAZINE 20MG/ML VIAL IV PRN (17:00)
[2022-02-17] MEDS ORDERED: METOPROLOL TARTRATE 1 MG/ML 5ML VIAL IV PRN (17:00)
[2022-02-17] MEDS ORDERED: ZOLPIDEM TARTRATE 5 MG TAB PO PRN (22:00)
[2022-02-18] VITALS (21 sets, daily range): BP systolic 96–149; BP diastolic 42–88
[2022-02-18] MEDS: ZOSYN 3.375GM +NS 50ML IV SCH ×3 (01:54→17:55)
[2022-02-18] MEDS: DEXMEDETOMIDINE 400MCG/NS100ML IV SCH (01:56)
[2022-02-18 04:28] LABS: HEMATOCRIT 27.7 % (42-54); MEAN CORPUSCULAR HEMOGLOBIN 28.8 pg (27.0-33.0); MEAN CORPUSCULAR HGB CONC 33.2 g/dL (32.0-36.0); MEAN CORPUSCULAR VOLUME 86.8 fL (79-99); NUCLEATED RED BLOOD CELLS 0.2 % (0.0-0.19); RED BLOOD CELL COUNT(AUTO) 3.19 MIL/uL (4.50-6.20); RED CELL DISTRIBUTION WIDTH 13.4 % (11.0-15.5); WHITE BLOOD COUNT (AUTO) 12.1 K/uL (4.8-10.8)
[2022-02-18 04:41] LABS: CREATININE 0.6 mg/dL (0.5-1.5); MAGNESIUM 1.8 mg/dL (1.80-2.40); PHOSPHORUS 1.7 mg/dL (2.5-4.9); POTASSIUM 3.5 mmol/L (3.5-5.1)
[2022-02-18] MEDS: ARTIFICAL TEARS SOL 15 ML OU SCH ×4 (05:00→23:06)
[2022-02-18] MEDS: INSULIN HUMULIN R 100 UNIT/ML 3ML SQ SCH ×4 (06:15→22:03)
[2022-02-18] MEDS: IPRATROPIUM 0.5 MG/2.5 ML INH IH SCH ×4 (07:23→23:49)
[2022-02-18] MEDS: INSULIN GLARGINE 100 UNITS/ML 10 ML VIAL SQ SCH ×2 (07:30→22:04)
[2022-02-18] MEDS: ASPIRIN 81 MG EC TAB PO SCH (08:37)
[2022-02-18] MEDS: DOXYCYCLINE HYCLATE 100 MG TABLET PO SCH ×2 (08:37→20:33)
[2022-02-18] MEDS: BISACODYL 5 MG TABLET.DR PO SCH ×2 (08:37→20:33)
[2022-02-18] MEDS: CILOSTAZOL 100 MG TAB PO SCH ×2 (08:37→20:33)
[2022-02-18] MEDS: PANTOPRAZOLE 40 MG TAB DR PO SCH (08:37)
[2022-02-18] MEDS: FUROSEMIDE 20MG VIAL IV SCH (08:38)
[2022-02-18] MEDS: POTASSIUM CHLORIDE 10% ELIXIR 20 MEQ/15 ML UDCUP PO PRN (08:39)
[2022-02-18] MEDS: CHLORHEXIDINE GLUCONATE 473 ML MOUTHWASH MM SCH ×2 (08:41→20:57)
[2022-02-18] MEDS: ENOXAPARIN SODIUM 40 MG/0.4 ML SYRINGE SQ SCH (09:47)
[2022-02-18] MEDS ORDERED: POTASSIUM PHOS 15 mMOL+NS250ML 250 ML IV PRN (10:30)
[2022-02-18] MEDS ORDERED: DEXTROSE 5 % AND 0.9 % NACL 1,000 ML IV SCH (11:00)
[2022-02-18] MEDS: ACETAMINOPHEN 325 MG TAB PO PRN (15:05)
[2022-02-18] MEDS ORDERED: SODIUM BICARBONATE 650 MG TAB PO PRN (19:30)
[2022-02-18] MEDS: ACETAMINOPHEN WITH CODEINE 1 TAB TAB PO PRN (20:38)
[2022-02-19] VITALS (7 sets, daily range): BP systolic 137–156; BP diastolic 66–98
[2022-02-19] MEDS: ZOSYN 3.375GM +NS 50ML IV SCH ×3 (02:50→18:09)
[2022-02-19 04:44] LABS: MEAN CORPUSCULAR HGB CONC 33.7 g/dL (32.0-36.0); NUCLEATED RED BLOOD CELLS 0.2 % (0.0-0.19); PLATELET COUNT (AUTO) 443 K/uL (130-400); RED BLOOD CELL COUNT(AUTO) 3.14 MIL/uL (4.50-6.20); RED CELL DISTRIBUTION WIDTH 13.6 % (11.0-15.5); WHITE BLOOD COUNT (AUTO) 12.4 K/uL (4.8-10.8)
[2022-02-19] MEDS: ACETAMINOPHEN WITH CODEINE 1 TAB TAB PO PRN ×2 (04:45→21:39)
[2022-02-19] MEDS: ARTIFICAL TEARS SOL 15 ML OU SCH ×4 (05:02→21:38)
[2022-02-19 05:22] LABS: CREATININE 0.6 mg/dL (0.5-1.5); POTASSIUM 3.5 mmol/L (3.5-5.1)
[2022-02-19 05:26] LABS: ALBUMIN 2.3 g/dL (3.5-5.0); PHOSPHORUS 2.8 mg/dL (2.5-4.9); TOTAL PROTEIN, SERUM 6.3 g/dL (6.0-8.3)
[2022-02-19 06:00] LABS: EOSINOPHILS % (MANUAL) 2 % (1-6); LYMPHOCYTES % (MANUAL) 20 % (22-44); MONOCYTES % (MANUAL) 2 % (2-9); SEGMENTED NEUTROPHILS % 76 % (40-70)
[2022-02-19 06:01] LABS: MAN.DIFF COMMENT-IMPRESSION MANUAL DIFFERENTIAL
[2022-02-19 06:03] LABS: PLATELET MORPHOLOGY COMMENT SLIGHT INCREASED
[2022-02-19] MEDS: INSULIN HUMULIN R 100 UNIT/ML 3ML SQ SCH ×4 (06:32→21:00)
[2022-02-19] MEDS: POTASSIUM CHLORIDE 10% ELIXIR 20 MEQ/15 ML UDCUP PO PRN (06:32)
[2022-02-19] MEDS: IPRATROPIUM 0.5 MG/2.5 ML INH IH SCH ×4 (06:37→23:37)
[2022-02-19] MEDS: INSULIN GLARGINE 100 UNITS/ML 10 ML VIAL SQ SCH ×2 (06:46→21:49)
[2022-02-19] MEDS: CHLORHEXIDINE GLUCONATE 473 ML MOUTHWASH MM SCH ×2 (08:34→21:38)
[2022-02-19] MEDS: ENOXAPARIN SODIUM 40 MG/0.4 ML SYRINGE SQ SCH (08:38)
[2022-02-19] MEDS: CILOSTAZOL 100 MG TAB PO SCH ×2 (08:38→21:38)
[2022-02-19] MEDS: DOXYCYCLINE HYCLATE 100 MG TABLET PO SCH ×2 (08:40→21:40)
[2022-02-19] MEDS: PANTOPRAZOLE 40 MG TAB DR PO SCH (08:40)
[2022-02-19] MEDS: ASPIRIN 81 MG EC TAB PO SCH (08:40)
[2022-02-19] MEDS: BISACODYL 5 MG TABLET.DR PO SCH ×2 (08:40→21:39)
[2022-02-19] MEDS: ACETAMINOPHEN 325 MG TAB PO PRN (08:40)
[2022-02-19] MEDS: METOPROLOL SUCCINATE 25 MG TAB.SR.24H PO SCH (08:41)
[2022-02-19] MEDS: LISINOPRIL 5 MG TABLET PO SCH (08:41)
[2022-02-19] MEDS: KCL 20 MEQ ERTAB PO PRN (08:43)
[2022-02-20] MEDS: ZOSYN 3.375GM +NS 50ML IV SCH ×3 (02:48→18:01)
[2022-02-20 03:17] VITALS: BP 137/73
[2022-02-20 03:52] LABS: CREATININE 0.7 mg/dL (0.5-1.5); POTASSIUM 3.9 mmol/L (3.5-5.1)
[2022-02-20 04:00] LABS: HEMATOCRIT 26.6 % (42-54); MEAN CORPUSCULAR HEMOGLOBIN 29.1 pg (27.0-33.0); MEAN CORPUSCULAR HGB CONC 33.1 g/dL (32.0-36.0); MEAN CORPUSCULAR VOLUME 88.1 fL (79-99); NUCLEATED RED BLOOD CELLS 0.2 % (0.0-0.19); PLATELET COUNT (AUTO) 489 K/uL (130-400); RED BLOOD CELL COUNT(AUTO) 3.02 MIL/uL (4.50-6.20); RED CELL DISTRIBUTION WIDTH 13.6 % (11.0-15.5); WHITE BLOOD COUNT (AUTO) 9.8 K/uL (4.8-10.8)
[2022-02-20] MEDS: ARTIFICAL TEARS SOL 15 ML OU SCH ×4 (05:00→22:55)
[2022-02-20] MEDS: ACETAMINOPHEN WITH CODEINE 1 TAB TAB PO PRN ×4 (05:33→20:21)
[2022-02-20] MEDS: INSULIN GLARGINE 100 UNITS/ML 10 ML VIAL SQ SCH ×2 (06:14→20:33)
[2022-02-20 06:26] LABS: BAND NEUTROPHILS % (MANUAL) 1 % (0-2); EOSINOPHILS % (MANUAL) 3 % (1-6); LYMPHOCYTES % (MANUAL) 13 % (22-44); MAN.DIFF COMMENT-IMPRESSION MANUAL DIFFERENTIAL; MONOCYTES % (MANUAL) 8 % (2-9); SEGMENTED NEUTROPHILS % 75 % (40-70)
[2022-02-20] MEDS: IPRATROPIUM 0.5 MG/2.5 ML INH IH SCH ×4 (06:29→23:31)
[2022-02-20] MEDS: INSULIN HUMULIN R 100 UNIT/ML 3ML SQ SCH ×4 (06:48→20:32)
[2022-02-20] MEDS: LACTATED RINGERS 1000ML 1,000 ML IV SCH ×3 (07:19→22:55)
[2022-02-20 08:00] VITALS: BP 140/78
[2022-02-20] MEDS: BISACODYL 5 MG TABLET.DR PO SCH ×2 (08:16→20:21)
[2022-02-20] MEDS: CILOSTAZOL 100 MG TAB PO SCH ×2 (08:16→20:20)
[2022-02-20] MEDS: ENOXAPARIN SODIUM 40 MG/0.4 ML SYRINGE SQ SCH (08:16)
[2022-02-20] MEDS: ASPIRIN 81 MG EC TAB PO SCH (08:16)
[2022-02-20] MEDS: DOXYCYCLINE HYCLATE 100 MG TABLET PO SCH ×2 (08:16→20:21)
[2022-02-20] MEDS: PANTOPRAZOLE 40 MG TAB DR PO SCH (08:16)
[2022-02-20] MEDS: METOPROLOL SUCCINATE 25 MG TAB.SR.24H PO SCH (08:16)
[2022-02-20] MEDS: LISINOPRIL 5 MG TABLET PO SCH (08:17)
[2022-02-20] MEDS: CHLORHEXIDINE GLUCONATE 473 ML MOUTHWASH MM SCH ×2 (08:23→20:20)
[2022-02-20] MEDS: FUROSEMIDE 40 MG TABLET PO SCH (10:50)
[2022-02-20 15:29] VITALS: BP 126/65
[2022-02-20 20:17] VITALS: BP 130/79
[2022-02-20 23:53] VITALS: BP 136/79
[2022-02-21] VITALS: BP 135/85
[2022-02-21] MEDS: ACETAMINOPHEN WITH CODEINE 1 TAB TAB PO PRN ×5 (01:48→23:54)
[2022-02-21] MEDS: ZOSYN 3.375GM +NS 50ML IV SCH ×3 (02:13→17:48)
[2022-02-21 03:50] VITALS: BP 127/87
[2022-02-21 04:44] LABS: HEMATOCRIT 27.9 % (42-54); MEAN CORPUSCULAR HEMOGLOBIN 28.8 pg (27.0-33.0); MEAN CORPUSCULAR VOLUME 87.5 fL (79-99); NUCLEATED RED BLOOD CELLS 0.3 % (0.0-0.19); RED BLOOD CELL COUNT(AUTO) 3.19 MIL/uL (4.50-6.20); RED CELL DISTRIBUTION WIDTH 13.5 % (11.0-15.5); WHITE BLOOD COUNT (AUTO) 9.5 K/uL (4.8-10.8)
[2022-02-21] MEDS: ARTIFICAL TEARS SOL 15 ML OU SCH (05:14)
[2022-02-21 05:19] LABS: CREATININE 0.7 mg/dL (0.5-1.5); POTASSIUM 3.4 mmol/L (3.5-5.1)
[2022-02-21] MEDS: INSULIN HUMULIN R 100 UNIT/ML 3ML SQ SCH ×4 (05:48→20:33)
[2022-02-21] MEDS: KCL 20 MEQ ERTAB PO PRN ×2 (06:20→08:07)
[2022-02-21] MEDS: LACTATED RINGERS 1000ML 1,000 ML IV SCH ×3 (06:21→17:47)
[2022-02-21] MEDS: IPRATROPIUM 0.5 MG/2.5 ML INH IH SCH ×2 (06:26→11:11)
[2022-02-21] MEDS: INSULIN GLARGINE 100 UNITS/ML 10 ML VIAL SQ SCH ×2 (08:02→20:34)
[2022-02-21] MEDS: CHLORHEXIDINE GLUCONATE 473 ML MOUTHWASH MM SCH ×2 (08:03→20:34)
[2022-02-21] MEDS: BISACODYL 5 MG TABLET.DR PO SCH ×2 (08:03→20:26)
[2022-02-21] MEDS: METOPROLOL SUCCINATE 25 MG TAB.SR.24H PO SCH (08:03)
[2022-02-21] MEDS: ASPIRIN 81 MG EC TAB PO SCH (08:03)
[2022-02-21] MEDS: PANTOPRAZOLE 40 MG TAB DR PO SCH (08:03)
[2022-02-21] MEDS: CILOSTAZOL 100 MG TAB PO SCH ×2 (08:03→20:26)
[2022-02-21] MEDS: ENOXAPARIN SODIUM 40 MG/0.4 ML SYRINGE SQ SCH (08:03)
[2022-02-21] MEDS: FUROSEMIDE 40 MG TABLET PO SCH (08:04)
[2022-02-21] MEDS: LISINOPRIL 5 MG TABLET PO SCH (08:04)
[2022-02-21] MEDS: DOXYCYCLINE HYCLATE 100 MG TABLET PO SCH ×2 (08:04→20:26)
[2022-02-21 08:34] VITALS: BP 157/72
[2022-02-21 12:58] VITALS: BP 155/96
[2022-02-21 16:28] VITALS: BP 131/77
[2022-02-21] MEDS ORDERED: IPRATROPIUM 0.5 MG/2.5 ML INH IH PRN (18:00)
[2022-02-21 20:30] VITALS: BP 138/78
[2022-02-22] VITALS (7 sets, daily range): BP systolic 120–136; BP diastolic 65–85
[2022-02-22] MEDS: ZOSYN 3.375GM +NS 50ML IV SCH ×3 (02:03→17:14)
[2022-02-22] MEDS: LACTATED RINGERS 1000ML 1,000 ML IV SCH (02:18)
[2022-02-22 05:02] LABS: HEMATOCRIT 29.2 % (42-54); MEAN CORPUSCULAR HEMOGLOBIN 29.1 pg (27.0-33.0); MEAN CORPUSCULAR HGB CONC 32.9 g/dL (32.0-36.0); MEAN CORPUSCULAR VOLUME 88.5 fL (79-99); NUCLEATED RED BLOOD CELLS 0.3 % (0.0-0.19); RED BLOOD CELL COUNT(AUTO) 3.3 MIL/uL (4.50-6.20); RED CELL DISTRIBUTION WIDTH 13.5 % (11.0-15.5); WHITE BLOOD COUNT (AUTO) 10.2 K/uL (4.8-10.8)
[2022-02-22 05:40] LABS: CREATININE 0.7 mg/dL (0.5-1.5); POTASSIUM 3.3 mmol/L (3.5-5.1)
[2022-02-22] MEDS: INSULIN HUMULIN R 100 UNIT/ML 3ML SQ SCH ×4 (07:30→20:39)
[2022-02-22] MEDS: CHLORHEXIDINE GLUCONATE 473 ML MOUTHWASH MM SCH ×2 (09:00→21:00)
[2022-02-22] MEDS: INSULIN GLARGINE 100 UNITS/ML 10 ML VIAL SQ SCH ×2 (09:19→20:38)
[2022-02-22] MEDS: PANTOPRAZOLE 40 MG TAB DR PO SCH (09:25)
[2022-02-22] MEDS: SPIRONOLACTONE 25 MG TAB PO SCH (09:25)
[2022-02-22] MEDS: ASPIRIN 81 MG EC TAB PO SCH (09:25)
[2022-02-22] MEDS: DOXYCYCLINE HYCLATE 100 MG TABLET PO SCH (09:25)
[2022-02-22] MEDS: CILOSTAZOL 100 MG TAB PO SCH ×2 (09:25→20:39)
[2022-02-22] MEDS: FUROSEMIDE 40 MG TABLET PO SCH (09:25)
[2022-02-22] MEDS: LISINOPRIL 5 MG TABLET PO SCH (09:26)
[2022-02-22] MEDS: METOPROLOL SUCCINATE 25 MG TAB.SR.24H PO SCH (09:26)
[2022-02-22] MEDS: BISACODYL 5 MG TABLET.DR PO SCH (09:26)
[2022-02-22] MEDS: ENOXAPARIN SODIUM 40 MG/0.4 ML SYRINGE SQ SCH (09:27)
[2022-02-22] MEDS: ACETAMINOPHEN 325 MG TAB PO PRN (11:43)
[2022-02-22] MEDS ORDERED: POLYETHYLENE GLYCOL 3350 17 GM POWD.PACK PO ONE (18:00)
[2022-02-22] MEDS ORDERED: KCL 20 MEQ ERTAB PO ONE ×2 (18:00→19:00)
[2022-02-22] MEDS: FUROSEMIDE 40MG VIAL IV SCH (18:26)
[2022-02-22] MEDS: KCL 20 MEQ ERTAB PO PRN (18:31)
[2022-02-22] MEDS: ACETAMINOPHEN WITH CODEINE 1 TAB TAB PO PRN (20:41)
[2022-02-22 20:50] LABS: APPEARANCE,URINE CLEAR (CLEAR); BILIRUBIN,URINE NEGATIVE (NEGATIVE); COLOR,URINE COLORLESS (YELLOW); GLUCOSE, URINE (UA) 50 mg/dL (NEGATIVE); KETONES,URINE NEGATIVE (NEGATIVE); LEUKOCYTE ESTERASE ,URINE NEGATIVE Leu/uL (NEGATIVE); NITRATE,URINE NEGATIVE (NEGATIVE); OCCULT BLOOD,URINE NEGATIVE (NEGATIVE); PROTEIN,URINE NEGATIVE (NEGATIVE); UROBILINOGEN,URINE 0.2 mg/dL (0.2-1.0)
[2022-02-22 21:04] LABS: MUCUS,URINE RARE LPF (None Seen); RBC,URINE 0-1 /HPF (0-1)
[2022-02-23] VITALS (7 sets, daily range): BP systolic 117–134; BP diastolic 70–82
[2022-02-23] MEDS: FUROSEMIDE 40MG VIAL IV SCH ×2 (01:26→09:22)
[2022-02-23] MEDS: ACETAMINOPHEN WITH CODEINE 1 TAB TAB PO PRN ×2 (01:58→20:53)
[2022-02-23 04:24] LABS: BASOPHILS % (AUTO) 0.2 % (0.0-5.0); EOSINOPHILS % (AUTO) 1.5 % (0.0-8.0); HEMATOCRIT 27.9 % (42-54); LYMPHOCYTES % (AUTO) 18.5 % (21.0-51.0); MEAN CORPUSCULAR HEMOGLOBIN 28.9 pg (27.0-33.0); MEAN CORPUSCULAR VOLUME 87.7 fL (79-99); MONOCYTES % (AUTO) 9.1 % (3.0-13.0); PLATELET COUNT (AUTO) 495 K/uL (130-400); RED BLOOD CELL COUNT(AUTO) 3.18 MIL/uL (4.50-6.20); RED CELL DISTRIBUTION WIDTH 13.7 % (11.0-15.5); WHITE BLOOD COUNT (AUTO) 9.9 K/uL (4.8-10.8)
[2022-02-23 04:47] LABS: % IRON SATURATION 19.5 % (30-44)
[2022-02-23 05:11] LABS: CREATININE 0.9 mg/dL (0.5-1.5); POTASSIUM 3.9 mmol/L (3.5-5.1); THYROID STIMULATING HORMONE 6.17 uIU/mL (0.36-3.74)
[2022-02-23] MEDS: INSULIN HUMULIN R 100 UNIT/ML 3ML SQ SCH ×7 (05:40→20:52)
[2022-02-23] MEDS ORDERED: POLYETHYLENE GLYCOL 3350 17 GM POWD.PACK PO SCH (09:00)
[2022-02-23] MEDS: ACETAMINOPHEN 325 MG TAB PO PRN (09:20)
[2022-02-23] MEDS: PANTOPRAZOLE 40 MG TAB DR PO SCH (09:21)
[2022-02-23] MEDS: CILOSTAZOL 100 MG TAB PO SCH ×2 (09:21→20:54)
[2022-02-23] MEDS: ENOXAPARIN SODIUM 40 MG/0.4 ML SYRINGE SQ SCH (09:21)
[2022-02-23] MEDS: METOPROLOL SUCCINATE 25 MG TAB.SR.24H PO SCH (09:21)
[2022-02-23] MEDS: SPIRONOLACTONE 25 MG TAB PO SCH (09:21)
[2022-02-23] MEDS: LISINOPRIL 5 MG TABLET PO SCH (09:21)
[2022-02-23] MEDS: ASPIRIN 81 MG EC TAB PO SCH (09:22)
[2022-02-23] MEDS: CHLORHEXIDINE GLUCONATE 473 ML MOUTHWASH MM SCH ×2 (09:22→20:59)
[2022-02-23] MEDS: INSULIN GLARGINE 100 UNITS/ML 10 ML VIAL SQ SCH (20:50)
[2022-02-24] MEDS: ACETAMINOPHEN WITH CODEINE 1 TAB TAB PO PRN (00:49)
[2022-02-24 03:44] VITALS: BP 126/73
[2022-02-24 03:55] LABS: BASOPHILS % (AUTO) 0.2 % (0.0-5.0); EOSINOPHILS % (AUTO) 1.5 % (0.0-8.0); HEMATOCRIT 28.3 % (42-54); LYMPHOCYTES % (AUTO) 22.2 % (21.0-51.0); MEAN CORPUSCULAR HEMOGLOBIN 28.9 pg (27.0-33.0); MEAN CORPUSCULAR HGB CONC 32.9 g/dL (32.0-36.0); MEAN CORPUSCULAR VOLUME 87.9 fL (79-99); MONOCYTES % (AUTO) 8.3 % (3.0-13.0); NEUTROPHILS % (AUTO) 65.8 % (40.0-77.0); PLATELET COUNT (AUTO) 517 K/uL (130-400); RED BLOOD CELL COUNT(AUTO) 3.22 MIL/uL (4.50-6.20); RED CELL DISTRIBUTION WIDTH 13.9 % (11.0-15.5); WHITE BLOOD COUNT (AUTO) 10.3 K/uL (4.8-10.8)
[2022-02-24 04:05] LABS: CREATININE 0.8 mg/dL (0.5-1.5)
[2022-02-24] MEDS: INSULIN HUMULIN R 100 UNIT/ML 3ML SQ SCH ×7 (07:17→20:31)
[2022-02-24 08:00] VITALS: BP 146/76
[2022-02-24] MEDS: ACETAMINOPHEN 325 MG TAB PO PRN ×2 (09:05→17:20)
[2022-02-24] MEDS: ASPIRIN 81 MG EC TAB PO SCH (09:08)
[2022-02-24] MEDS: LISINOPRIL 5 MG TABLET PO SCH (09:08)
[2022-02-24] MEDS: ENOXAPARIN SODIUM 40 MG/0.4 ML SYRINGE SQ SCH (09:08)
[2022-02-24] MEDS: PANTOPRAZOLE 40 MG TAB DR PO SCH (09:09)
[2022-02-24] MEDS: SPIRONOLACTONE 25 MG TAB PO SCH (09:09)
[2022-02-24] MEDS: CILOSTAZOL 100 MG TAB PO SCH ×2 (09:09→20:18)
[2022-02-24] MEDS: METOPROLOL SUCCINATE 25 MG TAB.SR.24H PO SCH (09:09)
[2022-02-24] MEDS: CHLORHEXIDINE GLUCONATE 473 ML MOUTHWASH MM SCH ×2 (09:12→20:19)
[2022-02-24] MEDS ORDERED: LACTULOSE 20 GM/30 ML UDCUP PO ONE (09:30)
[2022-02-24 11:09] VITALS: BP 122/73
[2022-02-24 16:00] VITALS: BP 117/65
[2022-02-24 20:00] VITALS: BP 114/71
[2022-02-24] MEDS: INSULIN GLARGINE 100 UNITS/ML 10 ML VIAL SQ SCH (20:31)
[2022-02-24 23:53] VITALS: BP 154/82
[2022-02-25] MEDS: ACETAMINOPHEN WITH CODEINE 1 TAB TAB PO PRN (02:24)
[2022-02-25 03:20] VITALS: BP 113/65
[2022-02-25 03:33] LABS: BASOPHILS % (AUTO) 0.3 % (0.0-5.0); EOSINOPHILS % (AUTO) 1.1 % (0.0-8.0); HEMATOCRIT 30.9 % (42-54); LYMPHOCYTES % (AUTO) 19.9 % (21.0-51.0); MEAN CORPUSCULAR HGB CONC 31.7 g/dL (32.0-36.0); MEAN CORPUSCULAR VOLUME 88.3 fL (79-99); MONOCYTES % (AUTO) 6.8 % (3.0-13.0); NEUTROPHILS % (AUTO) 70.5 % (40.0-77.0); PLATELET COUNT (AUTO) 493 K/uL (130-400); RED CELL DISTRIBUTION WIDTH 13.8 % (11.0-15.5); WHITE BLOOD COUNT (AUTO) 10.4 K/uL (4.8-10.8)
[2022-02-25 03:43] LABS: CREATININE 0.7 mg/dL (0.5-1.5); POTASSIUM 3.9 mmol/L (3.5-5.1)
[2022-02-25] MEDS: INSULIN HUMULIN R 100 UNIT/ML 3ML SQ SCH ×7 (05:32→20:45)
[2022-02-25] MEDS: ACETAMINOPHEN 325 MG TAB PO PRN ×3 (07:10→20:48)
[2022-02-25 08:30] VITALS: BP 125/92
[2022-02-25] MEDS: LISINOPRIL 10 MG TABLET PO SCH (09:53)
[2022-02-25] MEDS: CILOSTAZOL 100 MG TAB PO SCH ×2 (09:54→20:44)
[2022-02-25] MEDS: SPIRONOLACTONE 25 MG TAB PO SCH (09:54)
[2022-02-25] MEDS: RIVAROXABAN 2.5 MG TABLET PO SCH (09:54)
[2022-02-25] MEDS: METOPROLOL SUCCINATE 25 MG TAB.SR.24H PO SCH (09:54)
[2022-02-25] MEDS: PANTOPRAZOLE 40 MG TAB DR PO SCH (09:54)
[2022-02-25] MEDS: ASPIRIN 81 MG EC TAB PO SCH (09:54)
[2022-02-25] MEDS: CHLORHEXIDINE GLUCONATE 473 ML MOUTHWASH MM SCH ×2 (09:55→20:46)
[2022-02-25] MEDS: ENOXAPARIN SODIUM 40 MG/0.4 ML SYRINGE SQ SCH (09:55)
[2022-02-25 12:00] VITALS: BP 116/73
[2022-02-25] MEDS ORDERED: COMPOUND IV MISC 1 EACH IVSOLN MISC PRN (15:30)
[2022-02-25] MEDS ORDERED: EPOETIN ALFA-EPBX (NON-ESRD) 10,000 UNIT/ML VIAL SQ SCH (15:30)
[2022-02-25] MEDS ORDERED: IRON SUCROSE COMPLEX 400 MG in 0.9%NACL 50ML 50 ML IV SCH (15:30)
[2022-02-25] MEDS ORDERED: IRON SUCROSE COMPLEX 400 MG in 0.9% NACL 250ML 250 ML IV SCH (16:00)
[2022-02-25 16:09] LABS: MYOGLOBIN 324 ng/mL (10-92)
[2022-02-25 16:12] LABS: CREATINE KINASE, TOTAL 2064 U/L (21-232)
[2022-02-25 16:32] VITALS: BP 125/79
[2022-02-25 19:02] VITALS: BP 122/75
[2022-02-25] MEDS: INSULIN GLARGINE 100 UNITS/ML 10 ML VIAL SQ SCH (20:45)
[2022-02-25 23:03] VITALS: BP 136/76
[2022-02-26 03:45] VITALS: BP 132/74
[2022-02-26] MEDS: INSULIN HUMULIN R 100 UNIT/ML 3ML SQ SCH ×7 (05:46→21:25)
[2022-02-26 06:49] VITALS: BP 134/68
[2022-02-26] MEDS: RIVAROXABAN 2.5 MG TABLET PO SCH (08:26)
[2022-02-26] MEDS: CHLORHEXIDINE GLUCONATE 473 ML MOUTHWASH MM SCH ×2 (08:27→21:21)
[2022-02-26] MEDS: ENOXAPARIN SODIUM 40 MG/0.4 ML SYRINGE SQ SCH (08:28)
[2022-02-26] MEDS: SPIRONOLACTONE 25 MG TAB PO SCH (08:28)
[2022-02-26] MEDS: PANTOPRAZOLE 40 MG TAB DR PO SCH (08:28)
[2022-02-26] MEDS: ASPIRIN 81 MG EC TAB PO SCH (08:28)
[2022-02-26] MEDS: LISINOPRIL 10 MG TABLET PO SCH (08:28)
[2022-02-26] MEDS: METOPROLOL SUCCINATE 25 MG TAB.SR.24H PO SCH (08:29)
[2022-02-26] MEDS: CILOSTAZOL 100 MG TAB PO SCH ×2 (08:29→21:22)
[2022-02-26] MEDS: CLINDAMYCIN 150 MG CAP PO SCH ×3 (10:09→21:22)
[2022-02-26 12:00] VITALS: BP 120/68
[2022-02-26 16:21] VITALS: BP 129/77
[2022-02-26 20:00] VITALS: BP 132/68
[2022-02-26] MEDS: ATORVASTATIN 40 MG TABLET PO SCH (21:22)
[2022-02-26] MEDS: INSULIN GLARGINE 100 UNITS/ML 10 ML VIAL SQ SCH (21:26)
[2022-02-27] VITALS (7 sets, daily range): BP systolic 98–128; BP diastolic 59–74
[2022-02-27] MEDS: ACETAMINOPHEN WITH CODEINE 1 TAB TAB PO PRN ×2 (00:31→08:21)
[2022-02-27] MEDS: CLINDAMYCIN 150 MG CAP PO SCH ×4 (02:44→20:40)
[2022-02-27 04:33] LABS: HEMATOCRIT 28.9 % (42-54); MEAN CORPUSCULAR HEMOGLOBIN 28.8 pg (27.0-33.0); MEAN CORPUSCULAR HGB CONC 32.9 g/dL (32.0-36.0); MEAN CORPUSCULAR VOLUME 87.6 fL (79-99); PLATELET COUNT (AUTO) 476 K/uL (130-400); RED CELL DISTRIBUTION WIDTH 13.8 % (11.0-15.5)
[2022-02-27 05:00] LABS: ALBUMIN 2.5 g/dL (3.5-5.0); CREATININE 0.8 mg/dL (0.5-1.5); POTASSIUM 3.8 mmol/L (3.5-5.1); TOTAL PROTEIN, SERUM 6.7 g/dL (6.0-8.3)
[2022-02-27 05:42] LABS: BASOPHILS % (MANUAL) 1 % (0-2); EOSINOPHILS % (MANUAL) 3 % (1-6); LYMPHOCYTES % (MANUAL) 23 % (22-44); MAN.DIFF COMMENT-IMPRESSION MANUAL DIFFERENTIAL; MONOCYTES % (MANUAL) 10 % (2-9); SEGMENTED NEUTROPHILS % 63 % (40-70)
[2022-02-27] MEDS: INSULIN HUMULIN R 100 UNIT/ML 3ML SQ SCH ×7 (06:16→21:52)
[2022-02-27] MEDS: POTASSIUM CHLORIDE 10% ELIXIR 20 MEQ/15 ML UDCUP PO PRN (06:24)
[2022-02-27] MEDS: CHLORHEXIDINE GLUCONATE 473 ML MOUTHWASH MM SCH ×2 (08:17→20:41)
[2022-02-27] MEDS: LISINOPRIL 10 MG TABLET PO SCH (08:18)
[2022-02-27] MEDS: ASPIRIN 81 MG EC TAB PO SCH (08:18)
[2022-02-27] MEDS: PANTOPRAZOLE 40 MG TAB DR PO SCH (08:18)
[2022-02-27] MEDS: RIVAROXABAN 2.5 MG TABLET PO SCH (08:18)
[2022-02-27] MEDS: METOPROLOL SUCCINATE 25 MG TAB.SR.24H PO SCH (08:19)
[2022-02-27] MEDS: CILOSTAZOL 100 MG TAB PO SCH ×2 (08:19→20:41)
[2022-02-27] MEDS: FUROSEMIDE 20 MG TABLET PO SCH (08:19)
[2022-02-27] MEDS: SPIRONOLACTONE 25 MG TAB PO SCH (08:20)
[2022-02-27] MEDS: ENOXAPARIN SODIUM 40 MG/0.4 ML SYRINGE SQ SCH (08:20)
[2022-02-27] MEDS: ATORVASTATIN 40 MG TABLET PO SCH (20:40)
[2022-02-27] MEDS: INSULIN GLARGINE 100 UNITS/ML 10 ML VIAL SQ SCH (21:52)
[2022-02-28] MEDS: CLINDAMYCIN 150 MG CAP PO SCH ×3 (03:42→15:23)
[2022-02-28] MEDS: ACETAMINOPHEN WITH CODEINE 1 TAB TAB PO PRN (03:43)
[2022-02-28 03:46] VITALS: BP 103/65
[2022-02-28] MEDS: INSULIN HUMULIN R 100 UNIT/ML 3ML SQ SCH ×6 (05:19→17:06)
[2022-02-28] MEDS: KCL 20 MEQ ERTAB PO PRN (06:28)
[2022-02-28 08:08] VITALS: BP 115/83
[2022-02-28] MEDS: CHLORHEXIDINE GLUCONATE 473 ML MOUTHWASH MM SCH (08:27)
[2022-02-28] MEDS: PANTOPRAZOLE 40 MG TAB DR PO SCH (08:28)
[2022-02-28] MEDS: ASPIRIN 81 MG EC TAB PO SCH (08:28)
[2022-02-28] MEDS: SPIRONOLACTONE 25 MG TAB PO SCH (08:28)
[2022-02-28] MEDS: LISINOPRIL 10 MG TABLET PO SCH (08:28)
[2022-02-28] MEDS: FUROSEMIDE 20 MG TABLET PO SCH (08:29)
[2022-02-28] MEDS: METOPROLOL SUCCINATE 25 MG TAB.SR.24H PO SCH (08:29)
[2022-02-28] MEDS: CILOSTAZOL 100 MG TAB PO SCH (08:29)
[2022-02-28] MEDS: RIVAROXABAN 2.5 MG TABLET PO SCH (08:30)
[2022-02-28] MEDS: ENOXAPARIN SODIUM 40 MG/0.4 ML SYRINGE SQ SCH (08:34)
[2022-02-28 11:35] VITALS: BP 102/64
[2022-02-28 16:50] VITALS: BP 107/63
[2022-02-28] MEDS ORDERED: ALPRAZOLAM 0.25 MG TABLET PO PRN (19:00)
[2022-02-28] MEDS ORDERED: FURO20TA6 PO (19:42)
[2022-02-28] MEDS ORDERED: AEC81 PO (19:42)
[2022-02-28] MEDS ORDERED: SPIR25TA6 PO (19:42)
[2022-02-28] MEDS ORDERED: DOXY100C5 PO (19:42)
[2022-02-28] MEDS ORDERED: RIVA2.5T PO (19:42)
[2022-02-28] MEDS ORDERED: METO25TA3 PO (19:42)
[2022-02-28] MEDS ORDERED: LISI10TA24 PO (19:42)
[2022-02-28] MEDS ORDERED: ATOR40TA69 PO (19:42)
[2022-02-28] MEDS ORDERED: PANT40TA PO (19:42)
[2022-02-28 20:00] VITALS: BP 114/77
== END 2022-02-28 22:00 | disposition home or self-care (01) | DRG 165 ==
LOC: EDH 22:00 → EDHIP 22:01 → 2AH 02-08 01:58 → 2BH 02-08 06:01 → 2CV 02-11 18:29 → 2BH 02-12 17:24 → 2DH 02-14 15:29 → 2BH 02-16 17:08 → 2AH 02-18 10:59
PROVIDERS: ADMIT Internal Medicine; ATTEND Internal Medicine
PROC: 4A023N7 Measurement of Cardiac Sampling and Pressure, Left Heart, Percutaneous Approach (ICD-10-PCS; 2022-02-08)
PROC: 02HA3RZ Insertion of Short-term External Heart Assist System into Heart, Percutaneous Approach (ICD-10-PCS; 2022-02-08)
PROC: B2111ZZ Fluoroscopy of Multiple Coronary Arteries using Low Osmolar Contrast (ICD-10-PCS; 2022-02-08)
PROC: 5A0221D Assistance with Cardiac Output using Impeller Pump, Continuous (ICD-10-PCS; 2022-02-08)
PROC: 4A133B1 Monitoring of Arterial Pressure, Peripheral, Percutaneous Approach (ICD-10-PCS; 2022-02-08)
PROC: 4A133J1 Monitoring of Arterial Pulse, Peripheral, Percutaneous Approach (ICD-10-PCS; 2022-02-08)
PROC: 06HN33Z Insertion of Infusion Device into Left Femoral Vein, Percutaneous Approach (ICD-10-PCS; 2022-02-08)
PROC: 30233N1 Transfusion of Nonautologous Red Blood Cells into Peripheral Vein, Percutaneous Approach (ICD-10-PCS; 2022-02-10)
PROC: 02100Z9 Bypass Coronary Artery, One Artery from Left Internal Mammary, Open Approach (ICD-10-PCS; principal; 2022-02-11 18:52)
PROC: 0211093 Bypass Coronary Artery, Two Arteries from Coronary Artery with Autologous Venous Tissue, Open Approach (ICD-10-PCS; 2022-02-11 18:52)
PROC: 06BQ4ZZ Excision of Left Saphenous Vein, Percutaneous Endoscopic Approach (ICD-10-PCS; 2022-02-11 18:52)
PROC: B41G1ZZ Fluoroscopy of Left Lower Extremity Arteries using Low Osmolar Contrast (ICD-10-PCS; 2022-02-16)
PROC: B41F1ZZ Fluoroscopy of Right Lower Extremity Arteries using Low Osmolar Contrast (ICD-10-PCS; 2022-02-16)
PROC: 3E053PZ Introduction of Platelet Inhibitor into Peripheral Artery, Percutaneous Approach (ICD-10-PCS; 2022-02-16)
DX: I21.4 Non-ST elevation (NSTEMI) myocardial infarction (principal); I63.40 Cerebral infarction due to embolism of unspecified cerebral artery; J96.01 Acute respiratory failure with hypoxia; J96.02 Acute respiratory failure with hypercapnia; R57.0 Cardiogenic shock; E11.10 Type 2 diabetes mellitus with ketoacidosis without coma; E87.1 Hypo-osmolality and hyponatremia; D63.8 Anemia in other chronic diseases classified elsewhere; Z20.822 Contact with and (suspected) exposure to COVID-19; I50.43 Acute on chronic combined systolic (congestive) and diastolic (congestive) heart failure; I13.0 Hypertensive heart and chronic kidney disease with heart failure and stage 1 through stage 4 chronic kidney disease, or unspecified chronic kidney disease; I25.10 Atherosclerotic heart disease of native coronary artery without angina pectoris; D62 Acute posthemorrhagic anemia; F14.10 Cocaine abuse, uncomplicated; E11.22 Type 2 diabetes mellitus with diabetic chronic kidney disease; F10.20 Alcohol dependence, uncomplicated; E66.01 Morbid (severe) obesity due to excess calories; E11.40 Type 2 diabetes mellitus with diabetic neuropathy, unspecified; E78.00 Pure hypercholesterolemia, unspecified; K70.30 Alcoholic cirrhosis of liver without ascites; M62.82 Rhabdomyolysis; N18.9 Chronic kidney disease, unspecified; Z53.9 Procedure and treatment not carried out, unspecified reason; N17.9 Acute kidney failure, unspecified; Z91.14 Patient's other noncompliance with medication regimen; I25.2 Old myocardial infarction; Z79.01 Long term (current) use of anticoagulants; Z79.4 Long term (current) use of insulin; Z79.82 Long term (current) use of aspirin; Z79.899 Other long term (current) drug therapy; Z87.891 Personal history of nicotine dependence; Z68.30 Body mass index [BMI] 30.0-30.9, adult
CPT/HCPCS: 31500; 33990; 36415; 36600; 37211; 37224; 70450; 70544; 70551; 71045; 74018; 74230; 75716; 76770; 80048; 80053; 80061; 80305; 81001; 82010; 82140; 82270; 82330; 82435; 82550; 82607; 82728; 82746; 82803; 82947; 82948; 83010; 83036; 83540; 83550; 83605; 83735; 83874; 83880; 83935; 84100; 84132; 84295; 84443; 84484; 84550; 85018; 85025; 85027; 85045; 85347; 85610; 85651; 85730; 86140; 86850; 86900; 86901; 86923; 87040; 87071; 87088; 87205; 87635; 87641; 92507; 92522; 92610; 92611; 93005; 93306; 93308; 93312; 93458; 93880; 93926; 93971; 94002; 94003; 94150; 94640; 94660; 94664; 96374; 97039; 99291; A4357; A7048; C1751; C1757; C1769; C1893; C1894; C9113; C9803; G0378; J0171; J0282; J0330; J0456; J0610; J0690; J0696; J1250; J1327; J1644; J1650; J1756; J1815; J1885; J1940; J2060; J2250; J2440; J2543; J2704; J2720; J3010; J3475; J3480; J3490; J7030; J7040; J7042; J7050; J7070; J7120; P9016; P9045; Q9967

== ENCOUNTER 2022-04-24 14:42 | Inpatient (IN) | payer MEDICAID ==
[~2022-04-24] VITALS: Ht 157.5 cm; Wt 71.9 kg
[~2022-04-24 14:42] MED LIST changes: +AEC81 PO; +ATOR40TA69 PO; -ATOR40TA71 PO; -CARV3.12 PO; -DIVA-78 PO; +DOXY100C5 PO; -EPINEPHRINE 1MG/10ML(1:10,000) 0.1 MG/ML SYG IVP ONE; -ETOMIDATE 20MG VIAL IVP ONE; +FURO20TA6 PO; +GABA-529 PO; -HYDR100C2 PO; -INSU100I21 SQ; +INSU100V12 SQ; -LINA5TAB PO; +LISI10TA24 PO; +METO25TA3 PO; +PANT40TA PO; -QUETIAPINE PO; +RIVA2.5T PO; +SPIR25TA6 PO; -SUCCINYLCHOLINE CHLORIDE 20 MG/ML 10 ML VIAL IVP ONE
[2022-04-24 16:11] LABS: BASOPHILS % (AUTO) 0.1 % (0.0-5.0); EOSINOPHILS % (AUTO) 0.4 % (0.0-8.0); HEMATOCRIT 35.1 % (42-54); LYMPHOCYTES % (AUTO) 10.6 % (21.0-51.0); MEAN CORPUSCULAR HEMOGLOBIN 28.1 pg (27.0-33.0); MEAN CORPUSCULAR HGB CONC 33.9 g/dL (32.0-36.0); MEAN CORPUSCULAR VOLUME 82.8 fL (79-99); MONOCYTES % (AUTO) 8.8 % (3.0-13.0); NEUTROPHILS % (AUTO) 79.6 % (40.0-77.0); PLATELET COUNT (AUTO) 287 K/uL (130-400); RED BLOOD CELL COUNT(AUTO) 4.24 MIL/uL (4.50-6.20); RED CELL DISTRIBUTION WIDTH 13.9 % (11.0-15.5); WHITE BLOOD COUNT (AUTO) 14.1 K/uL (4.8-10.8)
[2022-04-24 16:27] LABS: CREATININE 0.7 mg/dL (0.5-1.5); POTASSIUM 4.1 mmol/L (3.5-5.1)
[2022-04-24 16:29] LABS: ALBUMIN 3.3 g/dL (3.5-5.0); TOTAL PROTEIN, SERUM 7.9 g/dL (6.0-8.3)
[2022-04-24] MEDS: CLINDAMYCIN IVPB 600MG/50ML 50 ML IV SCH (17:09)
[2022-04-24] MEDS ORDERED: IOHEXOL 350 MG/ML 100ML INFUS..BTL IV ONE (17:49)
[2022-04-24] MEDS ORDERED: VANCOMYCIN PROTOCOL PER PHARMACY IV SCH (18:00)
[2022-04-24 18:13] LABS: CRP QUANTITATIVE 165.3 mg/L (0.00-9.0)
[2022-04-24] MEDS: CEFEPIME HCL 1 GM VIAL IVP SCH (18:30)
[2022-04-24 19:38] LABS: HEMOGLOBIN A1C 5.5 % (4.0-6.0)
[2022-04-24] MEDS: VANCOMYCIN 1G/250ML KIT 250 ML IV SCH (19:44)
[2022-04-25] MEDS ORDERED: HYDROMORPHONE 0.5 MG SYG (0.5MG/0.5ML) IVP ONE
[2022-04-25] MEDS: CLINDAMYCIN IVPB 600MG/50ML 50 ML IV SCH ×2 (00:51→09:16)
[2022-04-25] MEDS: CEFEPIME HCL 1 GM VIAL IVP SCH ×3 (03:12→16:37)
[2022-04-25 03:52] VITALS: BP 139/79
[2022-04-25 07:19] LABS: BASOPHILS % (AUTO) 0.2 % (0.0-5.0); EOSINOPHILS % (AUTO) 1.2 % (0.0-8.0); MEAN CORPUSCULAR HEMOGLOBIN 27.8 pg (27.0-33.0); MEAN CORPUSCULAR HGB CONC 33.7 g/dL (32.0-36.0); MEAN CORPUSCULAR VOLUME 82.6 fL (79-99); MONOCYTES % (AUTO) 9.4 % (3.0-13.0); NEUTROPHILS % (AUTO) 69.9 % (40.0-77.0); PLATELET COUNT (AUTO) 290 K/uL (130-400); RED BLOOD CELL COUNT(AUTO) 3.63 MIL/uL (4.50-6.20); RED CELL DISTRIBUTION WIDTH 13.8 % (11.0-15.5); WHITE BLOOD COUNT (AUTO) 8.7 K/uL (4.8-10.8)
[2022-04-25 07:30] LABS: CREATININE 0.6 mg/dL (0.5-1.5); MAGNESIUM 1.3 mg/dL (1.80-2.40)
[2022-04-25 07:40] VITALS: BP 135/95
[2022-04-25 08:00] VITALS: BP 135/79
[2022-04-25] MEDS: VANCOMYCIN 1G/250ML KIT 250 ML IV SCH ×2 (09:16→21:40)
[2022-04-25] MEDS: HYDROMORPHONE 0.5 MG SYG (0.5MG/0.5ML) IVP PRN ×4 (10:12→22:31)
[2022-04-25] MEDS ORDERED: MAGNESIUM 2GM PREMIX 50ML 50 ML IV PRN (10:30)
[2022-04-25] MEDS ORDERED: LIDOCAINE HCL-MPF 1% 2ML VIAL IV PRN (11:30)
[2022-04-25] MEDS ORDERED: CEFEPIME HCL 1 GM VIAL IVP SCH (12:00)
[2022-04-25] MEDS: INSULIN HUMULIN R 100 UNIT/ML 3ML SQ SCH ×3 (12:06→21:49)
[2022-04-25 12:18] VITALS: BP 129/77
[2022-04-25] MEDS ORDERED: PHARMACY COMMUNICATION MISC SCH (12:30)
[2022-04-25 13:55] LABS: CREATININE 0.7 mg/dL (0.5-1.5); MAGNESIUM 1.8 mg/dL (1.80-2.40); POTASSIUM 4.6 mmol/L (3.5-5.1)
[2022-04-25 16:39] VITALS: BP 151/73
[2022-04-25 18:28] VITALS: BP 140/83
[2022-04-25] MEDS: FAMOTIDINE 20MG VIAL IV SCH (21:40)
[2022-04-26 00:10] VITALS: BP 128/66
[2022-04-26] MEDS: CEFEPIME HCL 1 GM VIAL IVP SCH ×3 (02:17→17:40)
[2022-04-26 03:51] VITALS: BP 126/68
[2022-04-26] MEDS: HYDROMORPHONE 0.5 MG SYG (0.5MG/0.5ML) IVP PRN ×4 (04:51→23:40)
[2022-04-26] MEDS: INSULIN HUMULIN R 100 UNIT/ML 3ML SQ SCH ×4 (05:31→20:58)
[2022-04-26 07:52] VITALS: BP 122/69
[2022-04-26] MEDS: FAMOTIDINE 20MG VIAL IV SCH ×2 (08:21→20:44)
[2022-04-26] MEDS: VANCOMYCIN 1G/250ML KIT 250 ML IV SCH (08:21)
[2022-04-26 09:01] LABS: BASOPHILS % (AUTO) 0.3 % (0.0-5.0); EOSINOPHILS % (AUTO) 2.1 % (0.0-8.0); HEMATOCRIT 32.2 % (42-54); LYMPHOCYTES % (AUTO) 25.5 % (21.0-51.0); MEAN CORPUSCULAR HEMOGLOBIN 28.1 pg (27.0-33.0); MEAN CORPUSCULAR HGB CONC 34.2 g/dL (32.0-36.0); MEAN CORPUSCULAR VOLUME 82.1 fL (79-99); MONOCYTES % (AUTO) 8.8 % (3.0-13.0); PLATELET COUNT (AUTO) 339 K/uL (130-400); RED BLOOD CELL COUNT(AUTO) 3.92 MIL/uL (4.50-6.20); RED CELL DISTRIBUTION WIDTH 13.8 % (11.0-15.5); WHITE BLOOD COUNT (AUTO) 8.6 K/uL (4.8-10.8)
[2022-04-26 09:19] LABS: ALBUMIN 3.1 g/dL (3.5-5.0); CREATININE 0.7 mg/dL (0.5-1.5); MAGNESIUM 1.7 mg/dL (1.80-2.40); POTASSIUM 4.2 mmol/L (3.5-5.1); TOTAL PROTEIN, SERUM 7.7 g/dL (6.0-8.3)
[2022-04-26 11:16] VITALS: BP 137/84
[2022-04-26] MEDS ORDERED: CLOP75TA32 PO (14:02)
[2022-04-26] MEDS ORDERED: SITA100T12 PO (14:02)
[2022-04-26] MEDS ORDERED: GABA-529 PO (14:02)
[2022-04-26] MEDS ORDERED: CLIN-141 PO (14:02)
[2022-04-26 15:53] VITALS: BP 126/73
[2022-04-26 20:19] VITALS: BP 136/82
[2022-04-26] MEDS: VANCOMYCIN 1.25 GM/250 ML BAG 250 ML IV SCH (20:57)
[2022-04-26] MEDS ORDERED: KETOROLAC 30MG VIAL (30MG/ML) IVP ONE (23:00)
[2022-04-27 00:19] VITALS: BP 127/82
[2022-04-27] MEDS ORDERED: 0.9%NACL 100ML 100 ML ONE (02:06)
[2022-04-27] MEDS: CEFEPIME HCL 1 GM VIAL IVP SCH ×3 (02:09→17:45)
[2022-04-27 04:18] VITALS: BP 127/67
[2022-04-27] MEDS: HYDROMORPHONE 0.5 MG SYG (0.5MG/0.5ML) IVP PRN ×4 (05:55→23:45)
[2022-04-27] MEDS: INSULIN HUMULIN R 100 UNIT/ML 3ML SQ SCH ×4 (07:09→20:56)
[2022-04-27] MEDS: FAMOTIDINE 20MG VIAL IV SCH ×2 (08:06→20:56)
[2022-04-27] MEDS: METOPROLOL SUCCINATE 25 MG TAB.SR.24H PO SCH (08:06)
[2022-04-27] MEDS: VANCOMYCIN 1.25 GM/250 ML BAG 250 ML IV SCH ×2 (08:06→20:57)
[2022-04-27] MEDS: ASPIRIN 81 MG EC TAB PO SCH (08:06)
[2022-04-27] MEDS: PANTOPRAZOLE 40 MG TAB DR PO SCH (08:07)
[2022-04-27] MEDS: FUROSEMIDE 20 MG TABLET PO SCH (08:07)
[2022-04-27] MEDS: LISINOPRIL 10 MG TABLET PO SCH (08:07)
[2022-04-27] MEDS: GABAPENTIN 100 MG CAPSULE PO SCH ×2 (08:07→20:56)
[2022-04-27] MEDS: CLOPIDOGREL 75MG TAB PO SCH (08:07)
[2022-04-27 08:53] VITALS: BP 131/77
[2022-04-27 12:58] VITALS: BP 132/74
[2022-04-27 16:14] VITALS: BP 125/70
[2022-04-27 20:23] VITALS: BP 129/73
[2022-04-27] MEDS: ATORVASTATIN 40 MG TABLET PO SCH (20:56)
[2022-04-28 00:25] VITALS: BP 120/72
[2022-04-28] MEDS: CEFEPIME HCL 1 GM VIAL IVP SCH ×3 (02:12→17:20)
[2022-04-28 04:11] VITALS: BP 117/71
[2022-04-28 04:43] LABS: BASOPHILS % (AUTO) 0.3 % (0.0-5.0); EOSINOPHILS % (AUTO) 2.5 % (0.0-8.0); HEMATOCRIT 34.3 % (42-54); LYMPHOCYTES % (AUTO) 21.9 % (21.0-51.0); MEAN CORPUSCULAR HEMOGLOBIN 27.6 pg (27.0-33.0); MEAN CORPUSCULAR HGB CONC 32.9 g/dL (32.0-36.0); MEAN CORPUSCULAR VOLUME 83.7 fL (79-99); MONOCYTES % (AUTO) 8.6 % (3.0-13.0); NEUTROPHILS % (AUTO) 66.2 % (40.0-77.0); PLATELET COUNT (AUTO) 389 K/uL (130-400); RED CELL DISTRIBUTION WIDTH 13.6 % (11.0-15.5); WHITE BLOOD COUNT (AUTO) 10.3 K/uL (4.8-10.8)
[2022-04-28 05:10] LABS: CREATININE 0.7 mg/dL (0.5-1.5); POTASSIUM 3.9 mmol/L (3.5-5.1)
[2022-04-28] MEDS: INSULIN HUMULIN R 100 UNIT/ML 3ML SQ SCH ×4 (06:02→21:50)
[2022-04-28 08:59] VITALS: BP 119/85
[2022-04-28] MEDS: FAMOTIDINE 20MG VIAL IV SCH ×2 (09:00→20:35)
[2022-04-28] MEDS: METOPROLOL SUCCINATE 25 MG TAB.SR.24H PO SCH (10:25)
[2022-04-28] MEDS: FUROSEMIDE 20 MG TABLET PO SCH (10:25)
[2022-04-28] MEDS: PANTOPRAZOLE 40 MG TAB DR PO SCH (10:25)
[2022-04-28] MEDS: GABAPENTIN 100 MG CAPSULE PO SCH ×2 (10:26→20:35)
[2022-04-28] MEDS: CLOPIDOGREL 75MG TAB PO SCH (10:26)
[2022-04-28] MEDS: ASPIRIN 81 MG EC TAB PO SCH (10:26)
[2022-04-28] MEDS: LISINOPRIL 10 MG TABLET PO SCH (10:26)
[2022-04-28] MEDS: HYDROMORPHONE 0.5 MG SYG (0.5MG/0.5ML) IVP PRN ×2 (10:34→17:21)
[2022-04-28] MEDS: VANCOMYCIN 1.25 GM/250 ML BAG 250 ML IV SCH ×3 (10:38→21:13)
[2022-04-28 12:40] VITALS: BP 123/72
[2022-04-28 16:47] VITALS: BP 123/70
[2022-04-28 19:15] VITALS: BP 132/73
[2022-04-28] MEDS: ATORVASTATIN 40 MG TABLET PO SCH (20:35)
[2022-04-29 00:15] VITALS: BP 122/83
[2022-04-29] MEDS: CEFEPIME HCL 1 GM VIAL IVP SCH ×3 (01:34→16:57)
[2022-04-29] MEDS: VANCOMYCIN 1.25 GM/250 ML BAG 250 ML IV SCH ×3 (01:34→16:54)
[2022-04-29] MEDS: HYDROMORPHONE 0.5 MG SYG (0.5MG/0.5ML) IVP PRN ×4 (01:36→21:24)
[2022-04-29 03:15] VITALS: BP 119/60
[2022-04-29 03:51] LABS: BASOPHILS % (AUTO) 0.5 % (0.0-5.0); EOSINOPHILS % (AUTO) 3.5 % (0.0-8.0); HEMATOCRIT 33.6 % (42-54); LYMPHOCYTES % (AUTO) 25.9 % (21.0-51.0); MEAN CORPUSCULAR HEMOGLOBIN 27.5 pg (27.0-33.0); MEAN CORPUSCULAR HGB CONC 32.1 g/dL (32.0-36.0); MEAN CORPUSCULAR VOLUME 85.5 fL (79-99); MONOCYTES % (AUTO) 9.9 % (3.0-13.0); NEUTROPHILS % (AUTO) 59.5 % (40.0-77.0); PLATELET COUNT (AUTO) 407 K/uL (130-400); RED BLOOD CELL COUNT(AUTO) 3.93 MIL/uL (4.50-6.20); RED CELL DISTRIBUTION WIDTH 13.5 % (11.0-15.5); WHITE BLOOD COUNT (AUTO) 9.1 K/uL (4.8-10.8)
[2022-04-29 04:10] LABS: ALBUMIN 2.8 g/dL (3.5-5.0); CREATININE 0.8 mg/dL (0.5-1.5); POTASSIUM 3.8 mmol/L (3.5-5.1); TOTAL PROTEIN, SERUM 7.3 g/dL (6.0-8.3)
[2022-04-29] MEDS: INSULIN HUMULIN R 100 UNIT/ML 3ML SQ SCH ×4 (06:31→21:26)
[2022-04-29 07:00] VITALS: BP 121/72
[2022-04-29] MEDS: FAMOTIDINE 20MG VIAL IV SCH ×2 (07:47→21:24)
[2022-04-29] MEDS: PANTOPRAZOLE 40 MG TAB DR PO SCH (07:48)
[2022-04-29] MEDS: CLOPIDOGREL 75MG TAB PO SCH (07:48)
[2022-04-29] MEDS: LISINOPRIL 10 MG TABLET PO SCH (07:49)
[2022-04-29] MEDS: METOPROLOL SUCCINATE 25 MG TAB.SR.24H PO SCH (07:49)
[2022-04-29] MEDS: FUROSEMIDE 20 MG TABLET PO SCH (07:49)
[2022-04-29] MEDS: GABAPENTIN 100 MG CAPSULE PO SCH ×2 (07:49→21:24)
[2022-04-29] MEDS: ASPIRIN 81 MG EC TAB PO SCH (07:51)
[2022-04-29 11:00] VITALS: BP 107/72
[2022-04-29 16:00] VITALS: BP 123/64
[2022-04-29 19:15] VITALS: BP 126/72
[2022-04-29] MEDS: ATORVASTATIN 40 MG TABLET PO SCH (21:24)
[2022-04-29] MEDS: SODIUM HYPOCHLORITE 0.125% 473 ML SOLUTION TP SCH (21:31)
[2022-04-30 00:15] VITALS: BP 126/67
[2022-04-30] MEDS: VANCOMYCIN 1.25 GM/250 ML BAG 250 ML IV SCH ×2 (01:53→09:41)
[2022-04-30 03:15] VITALS: BP 109/67
[2022-04-30] MEDS: CEFEPIME HCL 1 GM VIAL IVP SCH ×3 (03:22→17:22)
[2022-04-30] MEDS: HYDROMORPHONE 0.5 MG SYG (0.5MG/0.5ML) IVP PRN ×3 (03:45→21:27)
[2022-04-30 04:31] LABS: CREATININE 0.8 mg/dL (0.5-1.5); POTASSIUM 4.8 mmol/L (3.5-5.1)
[2022-04-30] MEDS: INSULIN HUMULIN R 100 UNIT/ML 3ML SQ SCH ×4 (07:32→21:37)
[2022-04-30 08:04] VITALS: BP 139/84
[2022-04-30] MEDS: FUROSEMIDE 20 MG TABLET PO SCH (09:20)
[2022-04-30] MEDS: LISINOPRIL 10 MG TABLET PO SCH (09:20)
[2022-04-30] MEDS: PANTOPRAZOLE 40 MG TAB DR PO SCH (09:20)
[2022-04-30] MEDS: CLOPIDOGREL 75MG TAB PO SCH (09:21)
[2022-04-30] MEDS: FAMOTIDINE 20MG VIAL IV SCH ×2 (09:21→21:26)
[2022-04-30] MEDS: ASPIRIN 81 MG EC TAB PO SCH (09:21)
[2022-04-30] MEDS: SODIUM HYPOCHLORITE 0.125% 473 ML SOLUTION TP SCH ×2 (09:22→21:27)
[2022-04-30] MEDS: GABAPENTIN 100 MG CAPSULE PO SCH ×2 (09:22→21:27)
[2022-04-30] MEDS ORDERED: 0.9%NACL 100ML 100 ML ONE ×2 (09:25→17:21)
[2022-04-30] MEDS: METOPROLOL SUCCINATE 25 MG TAB.SR.24H PO SCH (09:41)
[2022-04-30 11:11] VITALS: BP 125/74
[2022-04-30 15:39] VITALS: BP 128/70
[2022-04-30] MEDS ORDERED: PHARMACY COMMUNICATION MISC SCH (17:00)
[2022-04-30 20:13] VITALS: BP 143/70
[2022-04-30] MEDS: ATORVASTATIN 40 MG TABLET PO SCH (21:27)
[2022-05-01 00:23] VITALS: BP 131/74
[2022-05-01] MEDS: CEFEPIME HCL 1 GM VIAL IVP SCH (02:02)
[2022-05-01 03:33] VITALS: BP 128/68
[2022-05-01] MEDS ORDERED: VANCOMYCIN 1.25 GM/250 ML BAG 250 ML IV SCH (06:00)
[2022-05-01] MEDS: INSULIN HUMULIN R 100 UNIT/ML 3ML SQ SCH (06:38)
[2022-05-01] MEDS ORDERED: SPIRONOLACTONE 25 MG TAB PO SCH (09:00)
[2022-05-01] MEDS ORDERED: RIVAROXABAN 2.5 MG TABLET PO SCH (09:00)
[2022-05-01 09:01] VITALS: BP 131/61
[2022-05-01] MEDS: CLOPIDOGREL 75MG TAB PO SCH (09:19)
[2022-05-01] MEDS: ASPIRIN 81 MG EC TAB PO SCH (09:19)
[2022-05-01] MEDS: LISINOPRIL 10 MG TABLET PO SCH (09:19)
[2022-05-01] MEDS: METOPROLOL SUCCINATE 25 MG TAB.SR.24H PO SCH (09:19)
[2022-05-01] MEDS: FAMOTIDINE 20MG VIAL IV SCH (09:20)
[2022-05-01] MEDS: PANTOPRAZOLE 40 MG TAB DR PO SCH (09:20)
[2022-05-01] MEDS: GABAPENTIN 100 MG CAPSULE PO SCH (09:20)
[2022-05-01] MEDS: FUROSEMIDE 20 MG TABLET PO SCH (09:20)
[2022-05-01] MEDS: SODIUM HYPOCHLORITE 0.125% 473 ML SOLUTION TP SCH (09:26)
== END 2022-05-01 10:35 | disposition home or self-care (01) | DRG 951 ==
LOC: EDH 14:42 → EDHIP 14:43 → 2AH 04-25 04:21
PROVIDERS: ADMIT Internal Medicine; ATTEND Internal Medicine
PROC: 0YBH0ZZ Excision of Right Lower Leg, Open Approach (ICD-10-PCS; principal; 2022-04-29)
DX: L03.115 Cellulitis of right lower limb (principal); E11.51 Type 2 diabetes mellitus with diabetic peripheral angiopathy without gangrene; E87.1 Hypo-osmolality and hyponatremia; I25.810 Atherosclerosis of coronary artery bypass graft(s) without angina pectoris; E11.622 Type 2 diabetes mellitus with other skin ulcer; L97.119 Non-pressure chronic ulcer of right thigh with unspecified severity; D64.9 Anemia, unspecified; Z96.659 Presence of unspecified artificial knee joint; L97.219 Non-pressure chronic ulcer of right calf with unspecified severity; I50.22 Chronic systolic (congestive) heart failure; I11.0 Hypertensive heart disease with heart failure; E66.9 Obesity, unspecified; W18.39XA Other fall on same level, initial encounter; E78.00 Pure hypercholesterolemia, unspecified; E87.6 Hypokalemia; K74.60 Unspecified cirrhosis of liver; Z95.1 Presence of aortocoronary bypass graft; Z86.73 Personal history of transient ischemic attack (TIA), and cerebral infarction without residual deficits; Z79.4 Long term (current) use of insulin; Y93.89 Activity, other specified; Y92.89 Other specified places as the place of occurrence of the external cause; Y99.8 Other external cause status; Z68.29 Body mass index [BMI] 29.0-29.9, adult; L97.819 Non-pressure chronic ulcer of other part of right lower leg with unspecified severity; E11.65 Type 2 diabetes mellitus with hyperglycemia
CPT/HCPCS: 36415; 73562; 73702; 76882; 80048; 80053; 80202; 82550; 82948; 83036; 83735; 84145; 84443; 85025; 86140; 93306; 93356; 93926; G0378; J0692; J1170; J1815; J1885; J3370; J3475; J3490; Q9967

== ENCOUNTER 2022-12-22 11:32 | Inpatient (IN) | payer MEDICAID ==
[~2022-12-22] VITALS: Ht 154.9 cm; Wt 75.2 kg
[~2022-12-22 11:32] MED LIST changes: +CLOP75TA32 PO; -DOXY100C5 PO; +SITA100T12 PO
[2022-12-22 11:57] LABS: BASOPHILS % (AUTO) 0.3 % (0.0-5.0); EOSINOPHILS % (AUTO) 1.3 % (0.0-8.0); HEMATOCRIT 38.2 % (42-54); LYMPHOCYTES % (AUTO) 20.7 % (21.0-51.0); MEAN CORPUSCULAR HEMOGLOBIN 28.3 pg (27.0-33.0); MEAN CORPUSCULAR HGB CONC 33.5 g/dL (32.0-36.0); MEAN CORPUSCULAR VOLUME 84.5 fL (79-99); NEUTROPHILS % (AUTO) 70.2 % (40.0-77.0); PLATELET COUNT (AUTO) 280 K/uL (130-400); RED BLOOD CELL COUNT(AUTO) 4.52 MIL/uL (4.50-6.20); RED CELL DISTRIBUTION WIDTH 13.7 % (11.0-15.5); WHITE BLOOD COUNT (AUTO) 9.1 K/uL (4.8-10.8)
[2022-12-22 12:16] LABS: ALBUMIN 4.3 g/dL (3.5-5.0); CREATININE 0.7 mg/dL (0.5-1.5); POTASSIUM 4.7 mmol/L (3.5-5.1); TOTAL PROTEIN, SERUM 8.1 g/dL (6.0-8.3)
[2022-12-22 12:42] LABS: B-TYPE NATRIURETIC PEPTIDE 538 pg/mL (0-100)
[2022-12-22] MEDS ORDERED: GLUCAGON 1MG KIT 1 MG ML IM PRN (14:30)
[2022-12-22] MEDS ORDERED: DEXTROSE 50%-WATER 50 ML DISP.SYRIN IV PRN (14:30)
[2022-12-22] MEDS ORDERED: IPRATROPIUM/ALBUTEROL SULFATE 3 ML SOLUTION IH PRN (14:30)
[2022-12-22] MEDS ORDERED: ACETAMINOPHEN 325 MG TAB PO PRN ×2 (14:30)
[2022-12-22] MEDS ORDERED: GUAIFENESIN-DM 200/20 MG 10 ML PO PRN (14:30)
[2022-12-22] MEDS ORDERED: ONDANSETRON 4MG INJ IV PRN (14:30)
[2022-12-22] MEDS: FUROSEMIDE 40MG VIAL IV SCH (14:43)
[2022-12-22] MEDS: CEFTRIAXONE 2GM VIAL IVPB SCH (14:43)
[2022-12-22] MEDS ORDERED: NITROGLYCERIN 0.4 MG SL TAB SL PRN (15:00)
[2022-12-22] MEDS ORDERED: PREG50CA63 PO (16:36)
[2022-12-22] MEDS ORDERED: LORA10TA7 PO (16:39)
[2022-12-22] MEDS: INSULIN HUMULIN R 100 UNIT/ML 3ML SQ SCH ×2 (18:05→21:00)
[2022-12-22] MEDS: FAMOTIDINE 20MG TAB PO SCH (21:39)
[2022-12-23] VITALS (11 sets, daily range): BP systolic 98–143; BP diastolic 62–91; PULSE 70–94; RESP 16–24; O2SAT 95–99
[2022-12-23] MEDS: FUROSEMIDE 40MG VIAL IV SCH ×4 (03:44→21:07)
[2022-12-23 07:04] LABS: HEMATOCRIT 38.6 % (42-54); MEAN CORPUSCULAR HEMOGLOBIN 28.4 pg (27.0-33.0); MEAN CORPUSCULAR HGB CONC 33.9 g/dL (32.0-36.0); MEAN CORPUSCULAR VOLUME 83.5 fL (79-99); RED BLOOD CELL COUNT(AUTO) 4.62 MIL/uL (4.50-6.20); RED CELL DISTRIBUTION WIDTH 13.7 % (11.0-15.5); WHITE BLOOD COUNT (AUTO) 6.8 K/uL (4.8-10.8)
[2022-12-23 07:20] LABS: ALBUMIN 4.1 g/dL (3.5-5.0); CREATININE 0.8 mg/dL (0.5-1.5); POTASSIUM 4.5 mmol/L (3.5-5.1)
[2022-12-23 07:28] LABS: PROTHROMBIN TIME 11.6 SEC (9.6-11.6)
[2022-12-23 07:29] LABS: PARTIAL THROMBOPLASTIN TIME 31.5 SEC (26.3-35.5)
[2022-12-23] MEDS: INSULIN HUMULIN R 100 UNIT/ML 3ML SQ SCH ×4 (07:30→20:55)
[2022-12-23] MEDS ORDERED: ENOXAPARIN SODIUM 30 MG/0.3 ML SQ SCH (09:00)
[2022-12-23] MEDS ORDERED: NON-FORMULARY MEDICATION 1 EACH (Pregabalin 50 MG) PO SCH (09:00)
[2022-12-23] MEDS ORDERED: NON-FORMULARY MEDICATION 1 EACH (Insulin Detemir (Levemir) 60 UNIT) SQ SCH (09:00)
[2022-12-23] MEDS: PREGABALIN 25 MG CAP PO SCH ×2 (09:59→20:56)
[2022-12-23] MEDS: CLOPIDOGREL 75MG TAB PO SCH (10:00)
[2022-12-23] MEDS: RIVAROXABAN 2.5 MG TABLET PO SCH ×2 (10:00→20:56)
[2022-12-23] MEDS: SPIRONOLACTONE 25 MG TAB PO SCH (10:00)
[2022-12-23] MEDS: LISINOPRIL 10 MG TABLET PO SCH (10:00)
[2022-12-23] MEDS: METOPROLOL SUCCINATE 25 MG TAB.SR.24H PO SCH (10:00)
[2022-12-23] MEDS: FAMOTIDINE 20MG TAB PO SCH ×2 (10:00→20:56)
[2022-12-23] MEDS: ASPIRIN 81 MG EC TAB PO SCH (10:00)
[2022-12-23] MEDS: LORATADINE 10 MG TABLET PO SCH (10:01)
[2022-12-23] MEDS: CEFTRIAXONE 2GM VIAL IVPB SCH (12:40)
[2022-12-23] MEDS ORDERED: HONEY 1 APPL/ML TUBE TP SCH (13:30)
[2022-12-23] MEDS: KCL 20 MEQ ERTAB PO SCH (18:57)
[2022-12-23] MEDS: ATORVASTATIN 40 MG TABLET PO SCH (20:56)
[2022-12-23] MEDS: INSULIN GLARGINE 100 UNITS/ML 10 ML VIAL SQ SCH (20:58)
[2022-12-24] VITALS (7 sets, daily range): BP systolic 102–132; BP diastolic 65–85; PULSE 67–96; RESP 16–20; O2SAT 95–97
[2022-12-24] MEDS: FUROSEMIDE 40MG VIAL IV SCH ×3 (05:39→22:03)
[2022-12-24] MEDS: INSULIN HUMULIN R 100 UNIT/ML 3ML SQ SCH ×4 (06:35→20:52)
[2022-12-24] MEDS: FAMOTIDINE 20MG TAB PO SCH ×2 (09:02→19:52)
[2022-12-24] MEDS: PREGABALIN 25 MG CAP PO SCH ×2 (09:02→19:51)
[2022-12-24] MEDS: RIVAROXABAN 2.5 MG TABLET PO SCH ×2 (09:02→19:50)
[2022-12-24] MEDS: CLOPIDOGREL 75MG TAB PO SCH (09:02)
[2022-12-24] MEDS: LISINOPRIL 10 MG TABLET PO SCH (09:02)
[2022-12-24] MEDS: ASPIRIN 81 MG EC TAB PO SCH (09:03)
[2022-12-24] MEDS: LORATADINE 10 MG TABLET PO SCH (09:03)
[2022-12-24] MEDS: SPIRONOLACTONE 25 MG TAB PO SCH (09:03)
[2022-12-24] MEDS: METOPROLOL SUCCINATE 25 MG TAB.SR.24H PO SCH (09:03)
[2022-12-24] MEDS: KCL 20 MEQ ERTAB PO SCH (09:03)
[2022-12-24 09:39] LABS: ALBUMIN 3.8 g/dL (3.5-5.0); MAGNESIUM 1.5 mg/dL (1.80-2.40); TOTAL PROTEIN, SERUM 7.4 g/dL (6.0-8.3)
[2022-12-24] MEDS: CEFTRIAXONE 2GM VIAL IVPB SCH (13:39)
[2022-12-24] MEDS: MAGNESIUM 2GM PREMIX 50ML 50 ML IV SCH (13:40)
[2022-12-24] MEDS: ATORVASTATIN 40 MG TABLET PO SCH (19:52)
[2022-12-24] MEDS: INSULIN GLARGINE 100 UNITS/ML 10 ML VIAL SQ SCH (20:51)
[2022-12-25] VITALS (8 sets, daily range): BP systolic 101–144; BP diastolic 65–71; PULSE 51–77; RESP 18–20; O2SAT 95–96
[2022-12-25] MEDS: FUROSEMIDE 40MG VIAL IV SCH ×2 (05:35→16:20)
[2022-12-25] MEDS: INSULIN HUMULIN R 100 UNIT/ML 3ML SQ SCH ×4 (06:03→21:10)
[2022-12-25 06:08] LABS: ALBUMIN 3.7 g/dL (3.5-5.0); CREATININE 0.9 mg/dL (0.5-1.5); TOTAL PROTEIN, SERUM 7.2 g/dL (6.0-8.3)
[2022-12-25] MEDS: ASPIRIN 81 MG EC TAB PO SCH (09:55)
[2022-12-25] MEDS: SPIRONOLACTONE 25 MG TAB PO SCH (09:55)
[2022-12-25] MEDS: LORATADINE 10 MG TABLET PO SCH (09:55)
[2022-12-25] MEDS: FAMOTIDINE 20MG TAB PO SCH ×2 (09:55→21:12)
[2022-12-25] MEDS: LISINOPRIL 10 MG TABLET PO SCH (09:55)
[2022-12-25] MEDS: RIVAROXABAN 2.5 MG TABLET PO SCH ×2 (09:55→21:12)
[2022-12-25] MEDS: METOPROLOL SUCCINATE 25 MG TAB.SR.24H PO SCH (09:56)
[2022-12-25] MEDS: KCL 20 MEQ ERTAB PO SCH (09:56)
[2022-12-25] MEDS: PREGABALIN 25 MG CAP PO SCH ×2 (09:56→21:11)
[2022-12-25] MEDS: CLOPIDOGREL 75MG TAB PO SCH (09:56)
[2022-12-25] MEDS: CEFTRIAXONE 2GM VIAL IVPB SCH (14:29)
[2022-12-25] MEDS: INSULIN GLARGINE 100 UNITS/ML 10 ML VIAL SQ SCH (21:11)
[2022-12-25] MEDS: ATORVASTATIN 40 MG TABLET PO SCH (21:12)
[2022-12-26] VITALS (8 sets, daily range): BP systolic 104–124; BP diastolic 58–76; PULSE 60–72; RESP 14–20; O2SAT 95–98
[2022-12-26 05:01] LABS: BASOPHILS % (AUTO) 0.5 % (0.0-5.0); EOSINOPHILS % (AUTO) 3.8 % (0.0-8.0); HEMATOCRIT 38.4 % (42-54); LYMPHOCYTES % (AUTO) 29.5 % (21.0-51.0); MEAN CORPUSCULAR HEMOGLOBIN 28.5 pg (27.0-33.0); MEAN CORPUSCULAR HGB CONC 34.1 g/dL (32.0-36.0); MEAN CORPUSCULAR VOLUME 83.5 fL (79-99); MONOCYTES % (AUTO) 8.5 % (3.0-13.0); PLATELET COUNT (AUTO) 278 K/uL (130-400); RED CELL DISTRIBUTION WIDTH 13.4 % (11.0-15.5); WHITE BLOOD COUNT (AUTO) 8.3 K/uL (4.8-10.8)
[2022-12-26 06:00] LABS: ALBUMIN 3.5 g/dL (3.5-5.0); CREATININE 0.8 mg/dL (0.5-1.5); MAGNESIUM 1.9 mg/dL (1.80-2.40); POTASSIUM 3.9 mmol/L (3.5-5.1); TOTAL PROTEIN, SERUM 6.9 g/dL (6.0-8.3)
[2022-12-26] MEDS: MAGNESIUM 2GM PREMIX 50ML 50 ML IV SCH (06:17)
[2022-12-26] MEDS: INSULIN HUMULIN R 100 UNIT/ML 3ML SQ SCH ×3 (06:27→16:29)
[2022-12-26] MEDS: FUROSEMIDE 40MG VIAL IV SCH ×2 (08:20→16:41)
[2022-12-26] MEDS: METOPROLOL SUCCINATE 25 MG TAB.SR.24H PO SCH (08:21)
[2022-12-26] MEDS: RIVAROXABAN 2.5 MG TABLET PO SCH (08:21)
[2022-12-26] MEDS: KCL 20 MEQ ERTAB PO SCH (08:21)
[2022-12-26] MEDS: PREGABALIN 25 MG CAP PO SCH (08:21)
[2022-12-26] MEDS: LORATADINE 10 MG TABLET PO SCH (08:22)
[2022-12-26] MEDS: FAMOTIDINE 20MG TAB PO SCH (08:22)
[2022-12-26] MEDS: LISINOPRIL 10 MG TABLET PO SCH (08:22)
[2022-12-26] MEDS: SPIRONOLACTONE 25 MG TAB PO SCH (08:22)
[2022-12-26] MEDS: ASPIRIN 81 MG EC TAB PO SCH (08:23)
[2022-12-26] MEDS: CLOPIDOGREL 75MG TAB PO SCH (08:24)
[2022-12-26] MEDS ORDERED: LEVO-70 PO (09:54)
[2022-12-26] MEDS ORDERED: FURO40TA5 PO (12:03)
[2022-12-26] MEDS ORDERED: LEVOFLOXACIN 500 MG TABLET PO SCH (13:00)
[2022-12-26] MEDS: CEFTRIAXONE 2GM VIAL IVPB SCH (16:14)
== END 2022-12-26 18:30 | disposition home or self-care (01) | DRG 133 ==
LOC: EDH 11:32 → OBSVTOIN 11:33 → EDHIP 11:33 → INTOOBSV 11:33 → 4DH 12-23 02:25
PROVIDERS: ADMIT Hospitalist; ATTEND Hospitalist
DX: J96.01 Acute respiratory failure with hypoxia (principal); I21.A1 Myocardial infarction type 2; I50.33 Acute on chronic diastolic (congestive) heart failure; E87.1 Hypo-osmolality and hyponatremia; Z79.899 Other long term (current) drug therapy; I11.0 Hypertensive heart disease with heart failure; I49.1 Atrial premature depolarization; Z60.2 Problems related to living alone; K74.60 Unspecified cirrhosis of liver; E78.00 Pure hypercholesterolemia, unspecified; I25.810 Atherosclerosis of coronary artery bypass graft(s) without angina pectoris; Z96.651 Presence of right artificial knee joint; E11.51 Type 2 diabetes mellitus with diabetic peripheral angiopathy without gangrene; L97.219 Non-pressure chronic ulcer of right calf with unspecified severity; Z95.1 Presence of aortocoronary bypass graft; Z79.82 Long term (current) use of aspirin; I25.5 Ischemic cardiomyopathy; I25.2 Old myocardial infarction
CPT/HCPCS: 36415; 71045; 73590; 80053; 82948; 83735; 83880; 84484; 85025; 85027; 85378; 85610; 85730; 87070; 87076; 87077; 87186; 93005; 93306; 93356; 93970; 94664; G0378; J0696; J1815; J1940; J3475

== ENCOUNTER → 2023-02-02 | Outpatient (CLI) | payer MEDICAID ==
[~2023-02-02] MED LIST changes: -FURO20TA6 PO; +FURO40TA5 PO; -GABA-529 PO; +LEVO-70 PO; +LORA10TA7 PO; -PANT40TA PO; +PREG50CA63 PO
== END | disposition home or self-care (01) ==
LOC: RAH 10:56
DX: I11.0 Hypertensive heart disease with heart failure (principal); Z98.890 Other specified postprocedural states
CPT/HCPCS: 71046

== ENCOUNTER → 2023-04-27 | Outpatient (CLI) | payer MEDICAID ==
[~2023-04-27] MED LIST changes: +FAMO20TA8 PO; +HONE44PA TP; -LISI10TA24 PO; +MECL-302 PO; +METF-446 PO; +PREG50 PO; -PREG50CA63 PO; +PREG50CA64 PO; +SACU1TAB PO
[2023-04-27 12:31] LABS: CREATININE 0.8 mg/dL (0.5-1.5)
== END | disposition home or self-care (01) ==
LOC: LAB 09:57
PROVIDERS: ATTEND Student in an Organized Health Care Education/Training Program
DX: I25.10 Atherosclerotic heart disease of native coronary artery without angina pectoris (principal)
CPT/HCPCS: 36415; 80048

== ENCOUNTER → 2023-05-03 | Outpatient (CLI) | payer MEDICAID | END | disposition home or self-care (01) | LOC: RAH 08:49 | DX: M75.102 Unspecified rotator cuff tear or rupture of left shoulder, not specified as traumatic (principal); M25.512 Pain in left shoulder; M19.012 Primary osteoarthritis, left shoulder | CPT/HCPCS: 73030 ==

== ENCOUNTER → 2024-01-06 | Outpatient (CLI) | payer MEDICARE, MEDICAID | END | disposition home or self-care (01) | LOC: RAH 01-03 08:56 | PROVIDERS: ATTEND Internal Medicine Gastroenterology | DX: K70.30 Alcoholic cirrhosis of liver without ascites (principal) | CPT/HCPCS: 76700; 93975 ==

== ENCOUNTER → 2024-02-17 | Outpatient (CLI) | payer MEDICARE ==
[2024-02-17 13:10] LABS: ALBUMIN 4.2 g/dL (3.5-5.0); BILIRUBIN,TOTAL 0.6 mg/dL (0.2-1.0); CREATININE 1.1 mg/dL (0.5-1.3); HEMOGLOBIN A1C 8.4 % (4.0-6.0); POTASSIUM 4.7 mmol/L (3.5-5.1); TOTAL PROTEIN, SERUM 7.9 g/dL (6.0-8.3)
== END | disposition home or self-care (01) ==
LOC: LAB 09:21
PROVIDERS: ATTEND Student in an Organized Health Care Education/Training Program
DX: I10 Essential (primary) hypertension (principal); Z79.899 Other long term (current) drug therapy
CPT/HCPCS: 36415; 80053; 80061; 83036

== ENCOUNTER → 2024-08-20 | Outpatient (CLI) | payer MEDICARE ==
[2024-08-20 17:02] LABS: HEMOGLOBIN A1C 6.7 % (4.0-6.0)
[2024-08-20 17:14] LABS: ALBUMIN 4.6 g/dL (3.5-5.0); BILIRUBIN,TOTAL 0.4 mg/dL (0.2-1.0); CREATININE 0.9 mg/dL (0.5-1.3); POTASSIUM 4.3 mmol/L (3.5-5.1); TOTAL PROTEIN, SERUM 7.9 g/dL (6.0-8.3)
== END | disposition home or self-care (01) ==
LOC: LAB 11:40
PROVIDERS: ATTEND Student in an Organized Health Care Education/Training Program
DX: I25.10 Atherosclerotic heart disease of native coronary artery without angina pectoris (principal); Z79.899 Other long term (current) drug therapy
CPT/HCPCS: 36415; 80053; 80061; 83036

== ENCOUNTER → 2024-09-03 | Outpatient (CLI) | payer MEDICARE ==
--- NOTE | 2024-09-03 12:01 | HMCIMG ---
CHEST 2VWS HISTORY: Preop COMPARISON: 03/09/2023 FINDINGS: Frontal and lateral projections of the chest were obtained. There is no acute pulmonary infiltrates or failure. Poststernotomy changes are seen. The heart is borderline enlarged. No evidence of aortic calcification is seen. Degenerative changes are seen of the thoracolumbar spine. IMPRESSION: 1. No acute pulmonary infiltrates.
== END | disposition home or self-care (01) ==
LOC: RAH 10:29
DX: Z01.818 Encounter for other preprocedural examination (principal); M20.42 Other hammer toe(s) (acquired), left foot; Z98.890 Other specified postprocedural states; M47.815 Spondylosis without myelopathy or radiculopathy, thoracolumbar region
CPT/HCPCS: 71046

== ENCOUNTER → 2024-09-26 | Outpatient (CLI) | payer MEDICARE ==
[~2024-09-26] MED LIST changes: +ASPI-1443 PO; +ATOR40TA71 PO; +BUME0.5T4 PO; +BUME1TAB6 PO; +GABA-529 PO; +INSU3INS3 SQ; +LISI10TA24 PO; +METO-408 PO; +MONT-39 PO; +PANT40TA54 PO; +XARELTO PO
--- NOTE | 2024-09-26 17:18 | HMCIMG ---
NM GASTRIC EMPTYING STUDY REASON: Abdominal Distension. COMPARISON: None TECHNIQUE: Nuclear gastric emptying study was performed with 1.5 mCi of technetium sulfur colloid with scrambled eggs through oral route. FINDINGS: T half for gastric emptying is 199 minutes. IMPRESSION: Abnormal gastric emptying with T half of 199 minutes.
== END | disposition home or self-care (01) ==
LOC: RAH 10:20
PROVIDERS: ATTEND Internal Medicine Gastroenterology
DX: R14.0 Abdominal distension (gaseous) (principal); R68.81 Early satiety
CPT/HCPCS: 78264; A9541

== ENCOUNTER → 2025-02-14 | Outpatient (CLI) | payer MEDICARE ==
[~2025-02-14] MED LIST changes: -AEC81 PO; -ATOR40TA69 PO; -BUME0.5T4 PO; +CLOP-31 PO; -FAMO20TA8 PO; -FURO40TA5 PO; -GLYB-171 PO; -HONE44PA TP; -INSU100V12 SQ; -LEVO-70 PO; +LINA5TAB PO; -LISI10TA24 PO; -LORA10TA7 PO; -MECL-302 PO; -METF-446 PO; -METO25TA3 PO; +NITR0.4T50 SL; -PREG50 PO; -PREG50CA64 PO; -RIVA2.5T PO; -SITA100T12 PO; -XARELTO PO
--- NOTE | 2025-02-15 06:47 | HMCIMG ---
EXAM: CR Bilateral Knees, 6 views. CLINICAL HISTORY: Pain. COMPARISON: None provided. FINDINGS: Total knee replacement prosthesis is noted in right knee joint. No acute fracture or aggressive appearing osseous lesion. Left knee joint space is reduced. Osteophytic lipping of articular margin is noted. There is no joint effusion appreciated. The soft tissues are unremarkable. IMPRESSION: Total knee replacement prosthesis is noted in right knee joint. Left knee joint space is reduced. Osteophytic lipping of articular margin is noted. /[place]
== END | disposition home or self-care (01) ==
LOC: RAH 11:42
DX: M25.762 Osteophyte, left knee (principal); M25.761 Osteophyte, right knee; M25.561 Pain in right knee; M25.562 Pain in left knee; G89.29 Other chronic pain; Z96.651 Presence of right artificial knee joint

== ENCOUNTER → 2025-04-23 | Outpatient (CLI) | payer MEDICARE, MEDICAID ==
[~2025-04-23] MED LIST changes: +CEPH500B PO; -CLOP-31 PO; +DAPA10TA PO; +METF-527 PO; +NEOM1OIN19 TP; +RIVA10TA PO; +SITA100T12 PO
--- NOTE | 2025-04-24 01:14 | HMCIMG ---
STUDY: X-RAY OF THE RIGHT KNEE, 3 VIEWS HISTORY: Presence of right artificial knee joint. TECHNIQUE: AP, lateral, and skyline views of the right knee are submitted for interpretation. COMPARISON: Knee radiographs from 02/14/2025. FINDINGS: Bones and joints: A right total knee arthroplasty prosthesis is in situ with satisfactory overall alignment. No periprosthetic fracture, lucency, or aggressive osseous lesion is identified. No acute fracture is seen. The visualized portion of the left knee demonstrates joint space narrowing with osteophytic lipping of the articular margins, compatible with degenerative osteoarthritis. No definite joint effusion is appreciated. Soft tissues: Periarticular soft tissues are unremarkable without focal swelling or soft tissue gas. Vascular calcifications are noted. IMPRESSION: * Right total knee replacement prosthesis in satisfactory alignment without radiographic evidence of periprosthetic fracture or loosening. * Degenerative osteoarthritic change of the left knee characterized by joint space narrowing and osteophyte formation, similar to the prior radiograph from 02/14/2025. * No acute fracture or aggressive osseous lesion identified. Vascular calcifications are present. /[place]
== END | disposition home or self-care (01) ==
LOC: RAH 11:33
DX: M17.12 Unilateral primary osteoarthritis, left knee (principal); M25.762 Osteophyte, left knee; Z96.651 Presence of right artificial knee joint
CPT/HCPCS: 73562